=== PATIENT | female | born 1995 | race Two or more races ===

== ENCOUNTER → 2024-10-04 | Outpatient (CLI) | payer OTHER, SELFPAY ==
[2024-10-04 10:45] LABS: Basophils # (Auto) 0.1 Thou/mm3 (0.0-0.2); Basophils % (Auto) 1 % (0-2.5); Eosinophils # (Auto) 0.2 Thou/mm3 (0.0-0.5); Eosinophils % (Auto) 3 % (0-10); Hematocrit 38.1 % (36.0-46.0); Immature Granulocytes % (Auto) 0 % (0-0); Immature Granulocytes Auto 0.02 Thou/mm3 (0.00-0.00); Lymphocytes # (Auto) 1.3 Thou/mm3 (1.0-4.8); Lymphocytes % (Auto) 18 % (10-50); Mean Corpuscular HGB Conc 34.1 g/dl (31.0-37.0); Mean Corpuscular Hemoglobin 31.3 pg (25.0-35.0); Mean Corpuscular Volume 92 fL (80-100); Monocytes # (Auto) 0.6 Thou/mm3 (0.0-0.8); Monocytes % (Auto) 8 % (0-12); Neutrophils # (Auto) 5.1 Thou/mm3 (1.8-7.7); Neutrophils % (Auto) 70 % (37-80); Nucleated Red Blood Cell % 0 /100 WBC (0); Platelet Count 245 Thou/mm3 (140-440); RDW Standard Deviation 42.9 fL (36.4-46.3); Red Blood Count 4.15 Miln/mm3 (4.00-5.20); White Blood Count 7.2 Thou/mm3 (3.6-11.0)
[2024-10-04 11:06] LABS: Ferritin 59 ng/mL (7.3-270.7)
[2024-10-12 06:26] LABS: ANA Screen, IFA NEGATIVE (NEGATIVE); DNA (ds) Antibody* <1 IU/mL; Mitochondrial Ab NEGATIVE (NEGATIVE)
== END | disposition home or self-care (01) ==
LOC: COPL 09:51
PROVIDERS: PCP Internal Medicine; Referring Provider Internal Medicine; Visit Provider Internal Medicine
DX: L65.8 Other specified nonscarring hair loss (principal); K92.2 Gastrointestinal hemorrhage, unspecified; D50.8 Other iron deficiency anemias
CPT/HCPCS: 36415; 82728; 85025; 86038; 86225; 86255

== ENCOUNTER 2024-10-29 10:35 | Day surgery (SDC) | payer OTHER, SELFPAY ==
[2024-10-24 11:50] LABS: HCG Qualitative,Urine Negative
[2024-10-24 12:27] VITALS: BMI 25.7
[2024-10-29] VITALS (12 sets, daily range): BP systolic 103–131; BP diastolic 62–80; PULSE 83–127; RESP 12–22; TEMP 36.2–37.4; O2SAT 96–100; BMI 26.2
[2024-10-29] MEDS: fentaNYL CIT INJ 50 mCg/ML AMP 2ML (ASD USE ONLY) IV (12:21)
[2024-10-29] MEDS: DiphenhydrAMINE INJ 50 MG/ML VIAL 25 MG IV (12:21)
[2024-10-29] MEDS: LIDOCAINE JELLY 2% (Urojet) 10 ML TUBE TOP (12:23)
[2024-10-29] MEDS: MEPERIDINE INJ 25 MG/ML VIAL (ASD USE ONLY) IV (12:27)
[2024-10-29] MEDS: MIDAZOLAM INJ 1 MG/ML VIAL 2 ML (ASD USE ONLY) 2 MG IV (12:27)
[2024-10-29] MEDS: ONDANSETRON INJ 2 MG/ML INJ 2 ML 4 MG IV (12:29)
--- NOTE | 2024-10-29 13:05 | SUR.PHASEII ---
1245: Pt received for recovery. Pt groggy. Easily aroused with eye opening. Resp even, unlabored. VS stable. Denies pain. 1306: Pt more awake, alert. Sitting up tolerating po fluids with no difficulty swallowing and no n/v.
--- NOTE | 2024-10-29 13:47 | SUR.PHASEII ---
1328: Pt fully awake, oriented x3. Pt assisted to restroom. Ambulation steady. Pt and sister stated understanding of discharge instructions. Pt discharged from [facility] in stable condition.
== END 2024-10-29 13:28 | disposition home or self-care (01) ==
PROVIDERS: PCP Internal Medicine; Referring Provider Specialist; Visit Provider Specialist
PROC: 0DBE8ZX Excision of Large Intestine, Via Natural or Artificial Opening Endoscopic, Diagnostic (ICD-10-PCS; CPT 45380; principal; 2024-10-29 12:15)
DX: K64.8 Other hemorrhoids (principal)
CPT/HCPCS: 45378; 81025; A4649; J1200; J2175; J2250; J2405; J3010

== ENCOUNTER 2024-12-03 07:06 | Emergency (ER) | payer OTHER, SELFPAY ==
[2024-12-03 07:15] VITALS: BP 108/76; PULSE 72; RESP 18; TEMP 36.9; O2SAT 100; BMI 25.8
--- NOTE | 2024-12-03 07:27 | EDNOTE_ITS ---
ED GI Bleed RME/HPI General Chief complaint: GI Bleed Stated complaint: RECTAL PAIN/BLEEDING, LOWER BACK PAIN Time Seen by Provider: 12/03/24 07:29 Source: patient Arrival date/time: 12/03/24 07:06 29-year-old female with a history of hematochezia presents to the emergency room with a chief complaint of rectal pain, bright red blood in the stool, and right- sided flank pain x 2 days. Patient states she spoke with her GI Dr. Collier last night and he told her if her pain is not getting better to return to the emergency room. Mode of arrival: ambulatory Limitations: no limitations Related Data Home Medications ?Medication ?Instructions ?Recorded ?Confirmed ergocalciferol (vitamin D2) 1,250 50,000 unit PO QWEEK 10/24/24 10/24/24 mcg (50,000 unit) capsule ferrous sulfate 325 mg (65 mg 1 mg PO QDAY 10/24/24 10/24/24 iron) tablet Previous Rx's ?Medication ?Instructions ?Recorded docusate sodium 100 mg capsule 100 mg PO QDAY #30 caps 12/03/24 (Colace) hydrocortisone acetate 25 mg 25 mg TN BID #12 ea 12/03/24 rectal suppository (Anusol-HC) Allergies Allergy/AdvReac Type Severity Reaction Status Date / Time No Known Allergies Allergy Verified 10/29/24 12:55 Review of Systems Review of Systems Systems Reviewed: All systems reviewed, normal except as documented Constitutional Constitutional: Reports system reviewed and no additional complaints, except as documented, Denies fatigue, Denies fever(s), Denies headache(s) and Denies weakness Eyes Eyes: Reports system reviewed and no additional complaints, except as documented, Denies blurry vision and Denies change in vision ENT Ears, Nose, Mouth, and Throat: Reports system reviewed and no additional complaints, except as documented, Denies otalgia, Denies headache(s), Denies nasal congestion, Denies throat swelling and Denies vertigo Cardiovascular Cardiovascular: Reports system reviewed and no additional complaints, except as documented, Denies chest pain, Denies dyspnea and Denies dyspnea on exertion Respiratory Respiratory: Reports system reviewed and no additional complaints, except as documented, Denies chest congestion, Denies cough, Denies dyspnea, Denies dyspnea on exertion and Denies wheezing Gastrointestinal Gastrointestinal: Reports system reviewed and no additional complaints, except as documented, Reports abdominal pain, Reports constipation, Reports cramping, Reports hematochezia, Reports nausea, Reports tenesmus and Denies vomiting Genitourinary Genitourinary: Reports system reviewed and no additional complaints, except as documented Musculoskeletal Musculoskeletal: Reports system reviewed and no additional complaints, except as documented and Denies back pain Integumentary/Breasts Skin/Breast: Reports system reviewed and no additional complaints, except as documented and Denies wounds Neurologic Neurologic: Reports system reviewed and no additional complaints, except as documented, Denies confusion, Denies headache(s), Denies lack of coordination, Denies vertigo and Denies weakness Psychiatric Psychiatric: Reports system reviewed and no additional complaints, except as documented, Denies anxiety, Denies confusion, Denies depression, Denies paranoia, Denies suicidal ideation and Denies tactile hallucinations Endocrine Endocrine: Reports system reviewed and no additional complaints, except as documented and Denies fatigue Hematologic/Lymphatic Hematologic/Lymphatic: Reports system reviewed and no additional complaints, except as documented and Denies lymphadenopathy Allergic/Immunologic Allergic/Immunologic: Reports system reviewed and no additional complaints, except as documented, Denies throat swelling, Denies urticaria and Denies wheezing ED Exam General Limitations: Present no limitations General appearance: Present alert and in no apparent distress Head Head exam: Present atraumatic Eye Eye exam: Present normal appearance, PERRL and EOMI ENT ENT exam: Present normal exam, normal oropharynx and mucous membranes moist Neck Neck exam: Present normal inspection, full ROM and trachea midline Chest Chest inspection: Present normal inspection and symmetric chest wall rise Respiratory Respiratory exam: Present normal lung sounds bilaterally Cardiovascular Cardiovascular exam: Present regular rate, normal rhythm and normal heart sounds Abdominal Exam Abdominal exam: Present soft, tenderness, normal bowel sounds and diminished bowel sounds; Absent distention, guarding, rebound or rigidity Abdominal tenderness: Present RLQ, LLQ and mild Rectal Exam Rectal exam: Present deferred, bloody stool, hemorrhoids and tenderness Extremities Exam Extremities exam: Present normal inspection and full ROM Back Exam Back exam: Present normal inspection and full ROM Neurological Exam Neurological exam: Present alert, oriented X3 and CN II-XII intact Psychiatric Psychiatric exam: Present normal affect and normal mood Skin Skin exam: Present warm, dry, intact and normal color Course Quality Measures none Orders Category Date Time Status CT Screening NOW Care 12/03/24 07:26 Completed Enema Administration NOW Care 12/03/24 09:23 Completed CBC Stat Lab 12/03/24 07:49 Completed CMP [Comprehensive Metabolic Panel] Stat Lab 12/03/24 07:49 Completed HCG Qualitative,Urine Stat Lab 12/03/24 07:32 Completed Lipase Stat Lab 12/03/24 07:49 Completed UA [Urinalysis] Stat Lab 12/03/24 07:32 Completed Urine Culture Stat Lab 12/03/24 07:34 Received Hydrocortisone Acet Cr 2.5% [Anusol-Hc Cr 2.5%] Med 12/03/24 10:44 Discontinued 1 gm TN X1 ONE Hydrocortisone Acet [Anusol Supp] Med 12/03/24 10:44 Discontinued 50 mg TN X1 ONE Vital Signs Vital signs: Vital Signs Temperature 98.5 F 12/03/24 07:15 Pulse Rate 72 12/03/24 07:15 Respiratory Rate 18 12/03/24 07:15 Blood Pressure 108/76 12/03/24 07:15 Pulse Oximetry (%) 100 12/03/24 07:15 Oxygen Delivery Method Room Air 12/03/24 07:15 GI Bleed MDM Narrative MDM Narrative:: 29-year-old female with a history of hematochezia presents to the emergency room with a chief complaint of rectal pain, bright red blood in the stool, and right- sided flank pain x 2 days. Patient states she spoke with her GI Dr. Collier last night and he told her if her pain is not getting better to return to the emergency room. Clinically the patient appears nontoxic and in no apparent distress. Physical examination shows mild lower abdominal tenderness with palpation. Patient states she is having bright red blood and is having tenderness and pain to her rectum. Patient states this has been an ongoing issue since she was 14 years [address] I called Dr. Collier and his recommendations were a CT scan of the abdomen and pelvis with contrast. During the workup the patient turned out to be . I called Dr. Collier and he ordered me to cancel the CT scan. An enema was done and the patient was reevaluated in 45 minutes and the patient had a bowel movement. However she is still having pain and tenderness in her rectum. Dr. Collier was called and his recommendations were to discharge the patient with some stool softeners and give her some pain relief here in the emergency room. Patient was discharged and educated to follow-up with primary care provider and Dr. Collier and return to the emergency room for any evidence of worsening signs or symptoms Patient data External records reviewed:: [facility] previous records Clinical information provided by:: patient Social determinants that could affect healthcare access:: none Patient has the following chronic illnesses:: No chronic illness How is presenting disease/condition affected by chronic disease/condition?: no chronic disease Evaluation data The following diagnostics were reviewed and interpreted by me:: lab results and radiology exam(s) Lab and/or radiology exams considered but not ordered:: Labs and radiology exams considered and ordered Interpretation Summary: N/A Medications / Prescriptions Medications or Prescriptions considered but not ordered:: Medication given Medication administrations:: Medication Administration History Discontinued Medications Hydrocortisone (Hydrocortisone Acet Cr 2.5% 30 Gm Tube) 1 gm TN X1 ONE Stop: 12/03/24 10:45 Last Admin: 12/03/24 12:21 Dose: 1 gm Documented By: AM Hydrocortisone Acetate (Hydrocortisone Acet 25 Mg Supp) 50 mg TN X1 ONE Stop: 12/03/24 10:45 Last Admin: 12/03/24 12:21 Dose: 50 mg Documented By: AM Medication given Consultations Consultation(s) initiated? (list below): Yes Consultation #1 (Physician, Specialty, Details): Dr. Collier Time: 08:00 Diagnosis GI bleed differential diagnosis: hemorrhoids, gastritis, hematochezia, melena and anal fissure Most likely diagnosis given after review of the tests above:: Hematochezia Admission Indicated Admission indicated?: not indicated Admission Request Was there a request for admission?: No Disposition Plan Disposition Plan: Discharge Discharge Attestation Discharge Attestation: The patient and all family members were given an opportunity to ask questions and understood the discharge instructions. Discharge instructions specifically effects, indications for sooner follow up or return to the emergency department, and the expected course of current diagnosis. Patient condition: Stable Discharge Plan Plan Patient Disposition: HOME (Self Care) Disposition Comment: Stable Prescriptions/Referrals Prescriptions/Med Rec: New docusate sodium [Colace] 100 mg capsule 100 mg PO QDAY Qty: 30 0RF hydrocortisone acetate [Anusol-HC] 25 mg suppository 25 mg TN BID Qty: 12 0RF No Action ferrous sulfate 325 mg (65 mg iron) tablet 1 mg PO QDAY ergocalciferol (vitamin D2) 1,250 mcg (50,000 unit) capsule 50,000 unit PO QWEEK Patient Comments: TAKE 1 CAPSULE BY MOUTH WEEKLY Referrals: Lauri Collier MD [Physician] - In 1 week Yenifer Roberts MD [Primary Care Provider] - In 1 week Problem List Clinical Impression: Hematochezia Patient/Caregiver Discharge Instructions Education Materials: Anatomy of the Digestive System Additional Instructions: Please follow-up with your primary care provider in the next 24 to 48 hours. I spoke to the GI specialist Dr. Collier who would like to see you in his office. Please call his office and schedule an appointment. Please increase your fiber intake. At this time you had a positive test. For any evidence of worsening signs or symptoms please return to the emergency room immediately Print Language: Vietnamese Stand Alone Forms: Jen Award Info., Work/School Release, Patient Portal Info Letter PA/ELECTRICAL INSTRUMENT MAKER Supervising Physician PA/KATHERIN Supervising Physician: Dr Malcolm
[2024-12-03 08:11] LABS: Collection Type, Urine Clean Catch; RBC,Urine 0 /hpf (0-3); WBC,Urine 0 /hpf (0-5)
[2024-12-03 08:17] LABS: Basophils # (Auto) 0.1 Thou/mm3 (0.0-0.2); Basophils % (Auto) 1 % (0-2.5); Eosinophils # (Auto) 0.2 Thou/mm3 (0.0-0.5); Eosinophils % (Auto) 2 % (0-10); Hematocrit 36.3 % (36.0-46.0); Hemoglobin 12.5 g/dL (12.0-16.0); Immature Granulocytes % (Auto) 0 % (0-0); Immature Granulocytes Auto 0.01 Thou/mm3 (0.00-0.00); Lymphocytes # (Auto) 2.1 Thou/mm3 (1.0-4.8); Lymphocytes % (Auto) 29 % (10-50); Mean Corpuscular HGB Conc 34.4 g/dl (31.0-37.0); Mean Corpuscular Hemoglobin 31.2 pg (25.0-35.0); Mean Corpuscular Volume 91 fL (80-100); Monocytes # (Auto) 0.6 Thou/mm3 (0.0-0.8); Monocytes % (Auto) 8 % (0-12); Neutrophils # (Auto) 4.2 Thou/mm3 (1.8-7.7); Neutrophils % (Auto) 60 % (37-80); Nucleated Red Blood Cell % 0 /100 WBC (0); Platelet Count 226 Thou/mm3 (140-440); RDW Standard Deviation 41.9 fL (36.4-46.3); Red Blood Count 4.01 Miln/mm3 (4.00-5.20); White Blood Count 7.1 Thou/mm3 (3.6-11.0)
[2024-12-03 08:34] LABS: HCG Qualitative,Urine Positive
[2024-12-03 08:37] LABS: Alanine Aminotransferase < 7 U/L (10-49); Albumin, Serum 4.1 gm/dL (3.5-5.0); Albumin/Globulin Ratio 1.5 (1.2-2.2); Alkaline Phosphatase 36 U/L (46-116); Anion Gap 6 (7-16); Aspartate Amino Transferase 15 U/L (0-34); BUN/Creatinine Ratio 14 Ratio (12-20); Bilirubin,Total 0.6 mg/dL (0.3-1.2); Blood Urea Nitrogen 10 mg/dL (9-23); Calcium 8.9 mg/dL (8.3-10.6); Calcium (Corrected) 8.9 mg/dL (8.5-10.1); Carbon Dioxide 23.9 mMol/L (20.0-31.0); Chloride 108 mMol/L (98-107); Creatinine (Component) 0.7 mg/dL (0.6-1.3); Estimated Creatinine Clearance 116.7 mL/min (>60); Globulin 2.8 gm/dL (2.3-3.5); Glucose 91 mg/dL (74-106); Lipase 38 U/L (12-53); Osmolality,Calculated 274 (275-295); Potassium 3.9 mMol/L (3.4-5.1); Sodium 138 mMol/L (136-145); Total Protein 6.9 gm/dL (5.7-8.2); eGFR > 60 See Note
[2024-12-03 08:54] LABS: Bacteria,Urine Rare; Bilirubin,Urine Negative (Negative); Blood,Urine Trace (Negative); Clarity,Urine Clear (Clear/Hazy); Color,Urine Lt-Yellow (Lt Yel-Yel); Glucose, Urine Negative (Negative); Ketones,Urine Negative (Negative); Leukocyte Esterase,Urine Negative (Negative); Nitrite,Urine Negative (Negative); PH,Urine 5.5 (5.0-7.0); Protein,Urine Negative (Neg - Trace); Specific Gravity,Urine 1.015 (1.001-1.035); Squamous Epithelial Cell,Urine 4 /hpf (0-5); Urobilinogen,Urine Negative mg/dL (0.0-1.0)
[2024-12-03 09:59] VITALS: BP 119/68; PULSE 67; RESP 16; TEMP 36.6; O2SAT 100
--- NOTE | 2024-12-03 10:44 | PC.NURSE ---
Pt states she was able to have large bm after enema, but still c/o rectal pain and pressure.
[2024-12-03] MEDS: HYDROCORTISONE ACET CR 2.5% 30 GM TUBE PR (12:21)
[2024-12-03] MEDS: HYDROCORTISONE ACET 25 MG SUPP 50 MG PR (12:21)
== END 2024-12-03 12:29 | disposition home or self-care (01) ==
PROVIDERS: Nurse Practitioner Family; Emergency Provider Emergency Medicine; PCP Internal Medicine
DX: K92.1 Melena (principal)
CPT/HCPCS: 36415; 80053; 81001; 81025; 83690; 85025; 87086; 99285; A9270

== ENCOUNTER 2025-05-20 13:25 | Observation (INO) | payer OTHER, SELFPAY ==
[2025-05-20] VITALS (12 sets, daily range): BP systolic 119; BP diastolic 73; PULSE 60–77; RESP 20–99; TEMP 37.2; O2SAT 88–100; BMI 31.2
--- NOTE | 2025-05-20 14:09 | XR_ITS ---
Examination: age Limited TECHNIQUE: Limited transabdominal sonographic images pelvis Date and time: May 20, 2025, 1422 hours INDICATIONS: Decreased movement beginning 2 days ago FINDINGS: Viable intrauterine gestation Cardiac motion 144 BPM Amniotic fluid index 14 cm IMPRESSION: Cardiac motion 144 BPM Amniotic fluid index 14 cm
--- NOTE | 2025-05-21 10:56 | PD.LDPN ---
Documentation for date of: 05/21/25 OB Labor Progress Note Pelvic Exam Amniotic membrane status: Intact Contractions Monitor mode: External Contraction frequency: NONE Assessment and Plan Comments: Late note for encounter on 05/20/25 Antonia is a 29yo G1 with SIUP at 28wk presenting to L&D for decreased movements. She notes no ctx, no lof, no vaginal bleeding. Current : This has been uncomplicated, she has had regular OB care with Dr. Andrade's office. Referred to [facility] for hx of hydrocephalus. ROS negative other than what was described above. Vitals wnl, afebrile General: well developed, well nourished, no acute distress, conversant Cardiac: normal heart rate Lungs: breathing without distress Abdomen: soft, gravid, non-tender, no rebound or guarding Extremities: no pain with palpation of calves NST: reassuring for gestational age with 10x10 accels, no decels, mod collette No ctx pattern Radiology: Examination: age Limited TECHNIQUE: Limited transabdominal sonographic images pelvis Date and time: May 20, 2025, 1422 hours INDICATIONS: Decreased movement beginning 2 days ago FINDINGS: Viable intrauterine gestation Cardiac motion 144 BPM Amniotic fluid index 14 cm IMPRESSION: Cardiac motion 144 BPM Amniotic fluid index 14 cm Assessment: Antonia is a 29yo G1 with SIUP at 28wk with decreased movement. Vitals wnl, benign exam. Reassuring status based on NST/WING (modified BPP). Plan: -Provided reassurance regarding findings -Continue routine follow up with Dr. Andrade's office -Discussed return precautions at length including FKCs Dr. Solis
== END 2025-05-20 14:55 | disposition home or self-care (01) ==
PROVIDERS: Admitting Provider Obstetrics & Gynecology; Visit Provider Obstetrics & Gynecology
DX: O36.8130 Decreased fetal movements, third trimester, not applicable or unspecified (principal); O26.893 Other specified pregnancy related conditions, third trimester; R10.12 Left upper quadrant pain; Z3A.28 28 weeks gestation of pregnancy
CPT/HCPCS: 59025; 59899; 76815

== ENCOUNTER → 2025-06-17 | Outpatient (CLI) | payer OTHER, SELFPAY ==
--- NOTE | 2025-06-17 16:53 | XR_ITS ---
Examination: MRI brain without intravenous contrast. Date and time of exam: June 17, 2025, 1811 hours INDICATIONS: History hydrocephalus with shunt placement made 1995, daily headaches months Technique: Multiple axial and sagittal images of the brain obtained. Siemens high-resolution 1.5 Ruby short bore scanners utilized. Sagittal sections, T1-weighted, TR 500, TE 14, are performed. Axial sections proton-density and T2-weighted have been obtained. Inversion recovery axial images, TR 9, 260, TE 111, TI 2500. Diffusion weighted images, axial sections, TR 4800, TE 128, B value 1000 Axial sections, ADC map, TR 4800, TE 128 Findings: Enlargement of the sella turcica is not present. The optic chiasm and infundibular are not remarkable. Prepontine and interpeduncular cisterns are not enlarged. There is no localized enlargement of the medulla or tiffany. Fourth ventricle and cerebellar tonsils appear normal in position. No subacute area of hemorrhage density is seen. Mass in the cerebellopontine angle region is not evident. Globes symmetrical. Orbital musculature including medial lateral rectus muscles do not exhibit abnormality. Diffusion-weighted images demonstrate no focus of restricted diffusion. Single 5 mm punctate focus of increased signal in the right parietal white matter FLAIR image 15 Shunt tubing posterior to the parieto-occipital bone Mass effect upon the ventricular system is not identified. Right occipital craniotomy defect Impression: Negative for acute hemorrhage or mass effect or midline shift No ventricular enlargement No acute infarct 5 mm punctate focus increased signal in the parietal white matter, seen with demyelinating disease
== END | disposition home or self-care (01) ==
LOC: SMRI 16:42
PROVIDERS: PCP Internal Medicine; Referring Provider Specialist; Visit Provider Specialist
DX: G37.9 Demyelinating disease of central nervous system, unspecified (principal)
CPT/HCPCS: 70551

== ENCOUNTER 2025-08-06 16:35 | Outpatient (CLI) | payer OTHER, SELFPAY ==
[2025-08-06 16:35] VITALS: BP 117/69; PULSE 73; RESP 16; RESP 99; TEMP 36.9; BMI 36.2
== END 2025-08-06 18:00 | disposition home or self-care (01) ==
LOC: S4SX 17:50 → S4S1 18:05 → S4SX 18:06
PROVIDERS: Referring Provider Specialist; Visit Provider Specialist
DX: O36.8130 Decreased fetal movements, third trimester, not applicable or unspecified (principal); Z3A.39 39 weeks gestation of pregnancy
CPT/HCPCS: 59025

== ENCOUNTER 2025-08-10 03:43 | Observation (INO) | payer OTHER, SELFPAY ==
[2025-08-10 03:50] VITALS: BP 146/84; PULSE 82; RESP 18; RESP 99; TEMP 37
[2025-08-10 04:03] VITALS: BMI 36.1
[2025-08-10 04:09] VITALS: BP 135/82; PULSE 75
[2025-08-10 04:45] VITALS: BP 112/69; PULSE 73
[2025-08-10 07:16] VITALS: BP 106/65; PULSE 70
[2025-08-10 07:47] VITALS: BP 109/61; PULSE 65
[2025-08-10 08:15] VITALS: BP 114/68; PULSE 73
== END 2025-08-10 12:24 | disposition home or self-care (01) ==
PROVIDERS: Admitting Provider Specialist; Visit Provider Specialist
DX: O26.893 Other specified pregnancy related conditions, third trimester (principal); Z3A.39 39 weeks gestation of pregnancy; R25.2 Cramp and spasm
CPT/HCPCS: 59025; 59899

== ENCOUNTER 2025-08-10 20:58 | Inpatient (IN) | payer OTHER, SELFPAY ==
--- NOTE | 2025-08-10 09:30 | ESHP_ITS ---
RE: CIRA MARROQUIN : 1995 DATE OF ADMISSION: 08/10/2025 HISTORY OF PRESENT ILLNESS: This is a 29-year-old 1, para 0 with intrauterine at 39 weeks and 5 days with due date of 08/12/2025, who presents to labor delivery complaining of contractions. She denies any leaking or bleeding. She reports normal movement. The patient was evaluated during her care by maternal medicine and neurosurgeon, Dr. Darien Zurita due to the patient's history of having an indwelling ventriculoperitoneal shunt, which was placed after an enterocele repair years ago at [facility] due to postsurgical hydrocephalus. Her INTERVENTIONAL CARDIOLOGIST shunt is nonfunctioning and the patient does not have any hydrocephalus with an MRI during her normal. Her neurologist and maternal medicine specialist have indicated that the patient is a candidate for vaginal delivery. Her care was also complicated by macrosomia with estimated weight on her ultrasound on 08/01/2025 of 8 pounds 12 ounces. The patient denies any headache, change in vision or right upper quadrant pain. MEDICATIONS: 1. multivitamin one p.o. daily. 2. Omeprazole 20 mg one p.o. daily. ALLERGIES: NO KNOWN DRUG ALLERGIES. PAST MEDICAL HISTORY: Encephalocele, postsurgical hydrocephalus, gastroesophageal reflux disease, polycystic ovarian syndrome, anxiety, risk of silent carrier of spinal muscular atrophy type 1, one in 40; however, her partner, Luís Nixon, father of the baby, was negative for being a carrier. PAST SURGICAL HISTORY: Encephalocele repair, placement of ventriculoperitoneal shunt for postsurgical hydrocephalus. FAMILY HISTORY: Hypertension and breast cancer. SOCIAL HISTORY: She denies alcohol, drug use or smoking. REVIEW OF SYSTEMS: She denies any chest pain, palpitations, cough, fever, flank pain, shortness of breath, fever, or lower extremity pain. PHYSICAL EXAMINATION: VITAL SIGNS: Blood pressure 127/80, heart rate 88, respirations 18, temperature 98.6. HEENT: Oropharynx and sclerae are clear. LUNGS: Clear to auscultation bilaterally. HEART: Regular rate and rhythm. ABDOMEN: Gravid, term size consistent with estimated weight of 9 pounds. PELVIC: See RN notes. EXTREMITIES: Nontender. SKIN: No gross rashes or lesions. NEUROLOGIC: No focal deficit. ASSESSMENT AND PLAN: Intrauterine at 39 weeks and 5 days, macrosomia, early labor, anticipate spontaneous vaginal delivery. Informed consent was obtained. The patient is made aware of the risks, complications, alternatives, and benefits of operative vaginal delivery and delivery. She agrees with these modes of delivery if indicated. The patient is aware that if delivery is indicated that she has a risk of infection of the ventriculoperitoneal shunt, which could lead to an infection in her brain. She is aware that there is an increased risk of infection if she undergoes a failed vaginal delivery. The patient was offered delivery due to the macrosomia to avoid risk of shoulder dystocia and minimize chances of INTERVENTIONAL CARDIOLOGIST shunt infection however, the patient declines and she elects to undergo a trial of vaginal delivery. DT: 07:48:15 TT: 08:54:00 Ref: [id number] - TID: [id number] MTDD
[2025-08-10 21:00] VITALS: TEMP 36.8
[2025-08-10 21:05] VITALS: BP 137/87; PULSE 75; RESP 18; RESP 98; TEMP 36.8; BMI 35.9
[2025-08-10 21:17] VITALS: BP 137/87; PULSE 75
[2025-08-11] VITALS (300 sets, daily range): BP systolic 91–149; BP diastolic 51–96; PULSE 52–150; RESP 12–22; TEMP 36.1–37; O2SAT 92–100; BMI 35.9
[2025-08-11 00:42] LABS: Basophils # (Auto) 0.1 Thou/mm3 (0.0-0.2); Basophils % (Auto) 0 % (0-2.5); Eosinophils # (Auto) 0.0 Thou/mm3 (0.0-0.5); Eosinophils % (Auto) 0 % (0-10); Hematocrit 36.6 % (36.0-46.0); Hemoglobin 12.7 g/dL (12.0-16.0); Immature Granulocytes Auto 0.05 Thou/mm3 (0.00-0.00); Lymphocytes # (Auto) 1.7 Thou/mm3 (1.0-4.8); Lymphocytes % (Auto) 12 % (10-50); Mean Corpuscular HGB Conc 34.7 g/dl (31.0-37.0); Mean Corpuscular Hemoglobin 31.7 pg (25.0-35.0); Mean Corpuscular Volume 91 fL (80-100); Monocytes # (Auto) 1.1 Thou/mm3 (0.0-0.8); Monocytes % (Auto) 8 % (0-12); Neutrophils # (Auto) 11.4 Thou/mm3 (1.8-7.7); Neutrophils % (Auto) 80 % (37-80); Nucleated Red Blood Cell # 0.00 Thou/mm3 (0.00-0.00); Nucleated Red Blood Cell % 0 /100 WBC (0); Platelet Count 186 Thou/mm3 (140-440); RDW Standard Deviation 42.4 fL (36.4-46.3); Red Blood Count 4.01 Miln/mm3 (4.00-5.20); White Blood Count 14.4 Thou/mm3 (3.6-11.0)
[2025-08-11 01:18] LABS: Syphilis Nonreactive (Nonreactive)
[2025-08-11] MEDS: RINGERS LACTATED 1000 ML 1,000 ML 100 ML IV (01:20)
[2025-08-11] MEDS: fentaNYL CIT INJ 50 mCg/ML AMP 2ML 100 MCG IVP (01:44)
[2025-08-11] MEDS: OXYTOCIN in NS 30 units 30 UNIT/500 ML BAG IV (04:54)
--- NOTE | 2025-08-11 07:06 | PD.LDPN ---
Documentation for date of: 08/11/25 OB Labor Progress Note Pain Control Comments: Epidural Pelvic Exam Dilation (cm): 7.5 Effacement (%): 90 station: 0 Amniotic membrane status: Ruptured Comments: Clear fluid Contractions Monitor mode: External Contraction frequency: 2-4.5 Contraction intensity: Moderate Status status: Category l Assessment and Plan Comments: Anticipate vaginal delivery
--- NOTE | 2025-08-11 16:15 | PD.LDPN ---
Documentation for date of: 08/11/25 OB Labor Progress Note Pelvic Exam Dilation (cm): 10 Effacement (%): 100 station: +3 Amniotic membrane status: Ruptured Contractions Monitor mode: External Contraction frequency: 1-3 Contraction intensity: Strong Status status: Category ll Assessment and Plan Comments: Patient requested vacuum-assisted vaginal delivery due to exhaustion and poor maternal expulsive effort after pushing for 2 hours The first 2 Mity VAC vacuum attempts resulted in pop-off's, and the third did not pop-off but there was no significant descent of the head on any attempt. Recommend emergency delivery Informed consent was obtained the patient was made aware the risk complication alternative benefits of the proposed procedure and she agrees.
[2025-08-11] MEDS: METOCLOPRAMIDE INJ 5 MG/ML VIAL 2 ML 10 MG IVP (16:19)
[2025-08-11] MEDS: ceFAZolin/D5W 2 GM IV 2 GM/100 ML BAG IV (16:19)
[2025-08-11] MEDS: FAMOTIDINE INJ 10 MG/ML VIAL 2 ML 20 MG IV (16:19)
--- NOTE | 2025-08-11 17:16 | PD.LDDS ---
DS: Providers Provider Date of admission: 08/11/25 00:14 Primary care physician: Physician No Primary/Family Admitting Provider: Kyrie Andrade MD Attending Provider on Admission: Kyrie Andrade MD Attending Provider on DC: Kyrie Andrade MD Discharging Provider: Kyrie Andrade MD DS: Diagnosis Discharge Diagnosis (1) Arrest of descent, delivered, current hospitalization: Status: Acute (2) Failed vacuum extraction, delivered, current hospitalization: Status: Acute (3) delivery delivered: Status: Acute (4) Endometriosis: Status: Acute (5) Endometritis: Status: Acute (6) hemorrhage, condition: Status: Acute (7) Uterine atony, , current hospitalization: Status: Acute (8) S/P abdominal hysterectomy and left salpingo-oophorectomy: Status: Acute Problem List Completed Was Problem List Reviewed/Reconciled?: Yes Summary/Hosp Course Peripartum Data Delivery Method: Low Transverse Time Spent with Patient Time attestation: Total time spent providing and/or coordinating discharge services: Exam Vital Signs Temp Pulse Resp BP Pulse Ox 98.2 F 69 16 131/71 H 98 08/11/25 07:00 08/11/25 16:11 08/11/25 07:00 08/11/25 16:11 08/11/25 16:18 Discharge Plan Plan Patient Disposition: HOME (Self Care) Patient condition on transfer: Stable Prescriptions/Referrals Prescriptions/Med Rec: New hydrocodone-acetaminophen 5-325 mg tablet 1 tab PO Q6H MDD 4 PRN (Reason: pain) Qty: 20 0RF ibuprofen 600 mg tablet 600 mg PO Q6H PRN (Reason: pain) Qty: 30 0RF sulfamethoxazole-trimethoprim [Bactrim DS] 800-160 mg tablet 1 tab PO BID Qty: 10 0RF amoxicillin-pot clavulanate 875-125 mg tablet 1 tab PO Q12H Qty: 10 0RF docusate sodium 100 mg capsule 100 mg PO BID PRN (Reason: constipation) Qty: 30 0RF hydrochlorothiazide 12.5 mg tablet 12.5 mg PO QDAY PRN (Reason: leg swelling) Qty: 7 0RF Continued PNV no.95-ferrous fumarate-FA [] 28 mg iron- 800 mcg tablet 1 tab PO .QD Patient Comments: TAKE 1 TABLET BY MOUTH EVERY DAY Referrals: No Primary/Family,Physician [Primary Care Provider] Patient/Caregiver Discharge Instructions Discharge Activity: activity as tolerated Other Discharge Activity Instructions:: Follow up office 1 week. Education Materials: Depression, Breast Care After , Abdominal Hysterectomy Dc Print Language: Persian Stand Alone Forms: Jen Award Info., Patient Portal Info Letter Discharge Order Discharge Orders: Discharge (Routine); Ordered 08/15/25 Ordered By: Kyrie Andrade Planned Discharge Date 08/15/25
--- NOTE | 2025-08-11 17:16 | PD.GYNPROC ---
Operative Note - MATERIALS CLERK Procedure Date of procedure: 08/11/25 Procedure Performed: Primary low-transverse section via Pfanensteil skin incision Indication: IUP 39 weeks 6 days Active labor Arrest of descent Failed vacuum-assisted vaginal delivery Pre-Op diagnosis: IUP 39 weeks 6 days Active labor Arrest of descent Failed vacuum-assisted vaginal delivery Post-Op diagnosis: IUP 39 weeks 6 days Active labor Arrest of descent Failed vacuum-assisted vaginal delivery Endometritis Endometriosis Anesthesia type: General (Failed epidural) Procedure description: After proper informed consent was obtained and the patient was made aware of the risks, complications, alternatives and benefits of the proposed procedure she was taken to the operating room where she underwent induction She was prepped and draped in the usual sterile fashion. A timeout was performed.? Tesing of Epidural proved inadequate so the patient underwent induction of General Anesthesia. A Pfannenstiel skin incision was made with the scalpel and carried through to the underlying layer of fascia with the Bovie. The fascia was nicked in the midline incision and the incision was extended bilaterally with the Bovie. The inferior aspect of the fascial incision was grasped with Michael clamps elevated and the underlying rectus muscle dissected off with the Bovie. The superior aspect the fascial incision was grasped with Michael clamps elevated and the underlying rectus muscle dissected off with the Bovie. The rectus muscles were in the midline. The peritoneum was grasped between 2 Mansfield clamps and entered sharply with the Metzenbaum scissors. The peritoneum was extended superiorly and inferiorly with good visualization of the bladder. The vesicouterine peritoneum was incised transversely and the bladder flap created digitally. A Smitha blade was inserted. A low transverse incision was made in the uterus with a scapel and the incision was extended digitally. With the RN pushing up with sterile glove from below and the physician elevating the head out of the vagina from above, the 's head delivered and the mouth and nose were suctioned with the bulb suction. The shoulder and body delivered atraumatically. The cord was clamped after 30 second delayed cord clamping and the cord was cut.? The infant was handed off to the waiting Pediatric staff, cord blood and gases was collected for lab testing. The placenta was removed complete and intact. The uterus was exteriorized and cleared of all clots and debris. The uterus was initially atonic but responded to uterotonics in the form of Pitocin, Methergine and Cytotec. TXA was also given. The uterine incision was closed with #1-0 chromic catgut suture in a running interlocking fashion. A second layer of the same suture was used to imbricate the first layer and obtain excellent hemostasis. The vesicouterine peritoneum was closed with 2-0 chromic catgut suture in a running fashion. The firm uterus was returned to the abdomen. The gutters were cleared of all clots and debris. The peritoneum was closed with 0 chromic catgut suture in running fashion. The rectus muscle was closed with 0 chromic catgut suture. The fascia was closed with 0 Vicryl beginning at each angle and ending in the center in a running fashion. The subcutaneous tissue was irrigated with warmed normal saline solution and found to be hemostatic. The subcutaneous tissue was closed with 2-0 chromic catgut suture in a running fashion. The skin was closed with 4-0 Monocryl. A Dermabond Prineo dressing was applied and a sterile pressure dressing was applied.? She tolerated the procedure well. Counts were correct. I discussed with the patient and her the nature of her condition, intraoperative findings and expectation for recovery all? questions answered. Specimen: none Estimated blood loss (ml): 1,000 Findings: Viable infant Clear amniotic fluid Apgars 3 and 8 Cord pH 7.25 Cephalic Occiput anterior Uterus and ovaries contained superficial endometriotic implants Fallopian tubes appear grossly within normal limits No ventriculoperitoneal shunt was visualized Complications: other (Uterine atony) Surgical staff PRADIP Camacho, MEDICAL LAB TECH INSTRUCTOR Dr Andrade Surgeon Diagnosis Problem List Completed Was Problem List Reviewed/Reconciled?: Yes
[2025-08-11] MEDS: HYDROmorphone 1 MG/ML PCA SYRINGE 30ML 30 MG IV (17:56)
[2025-08-11] MEDS: MEPERIDINE INJ 50 MG/ML VIAL IVP (18:00)
[2025-08-11] MEDS: KETOROLAC INJ 30 MG/ML VIAL IVP (18:03)
[2025-08-11] MEDS: AMPICILLIN/SULBAC INJ 3 GM in SODIUM CHLORIDE 0.9% (POP) 100 ML IV (18:04)
--- NOTE | 2025-08-11 19:22 | XR_ITS ---
Examination: Abdomen AP single view Technique: AP portable supine abdomen, single view Exam date and time: August 11, 2025, 192 hrs. Indications: Incorrect instrument count Findings: Moderate stool throughout the colon. No opaque foreign body seen Impression: No opaque foreign body seen
[2025-08-11 20:37] LABS: Lactate (Lactic Acid) 1.8 mMol/L (0.4-2.0)
[2025-08-11 20:42] LABS: Basophils # (Auto) 0.0 Thou/mm3 (0.0-0.2); Basophils % (Auto) 0 % (0-2.5); Eosinophils # (Auto) 0.0 Thou/mm3 (0.0-0.5); Eosinophils % (Auto) 0 % (0-10); Hematocrit 21.7 % (36.0-46.0); Immature Granulocytes Auto 0.12 Thou/mm3 (0.00-0.00); Lymphocytes # (Auto) 0.9 Thou/mm3 (1.0-4.8); Lymphocytes % (Auto) 6 % (10-50); Mean Corpuscular HGB Conc 34.1 g/dl (31.0-37.0); Mean Corpuscular Hemoglobin 31.1 pg (25.0-35.0); Mean Corpuscular Volume 91 fL (80-100); Monocytes # (Auto) 1.3 Thou/mm3 (0.0-0.8); Monocytes % (Auto) 9 % (0-12); Neutrophils # (Auto) 12.8 Thou/mm3 (1.8-7.7); Neutrophils % (Auto) 85 % (37-80); Nucleated Red Blood Cell # 0.00 Thou/mm3 (0.00-0.00); Nucleated Red Blood Cell % 0 /100 WBC (0); Platelet Count 80 Thou/mm3 (140-440); RDW Standard Deviation 45.1 fL (36.4-46.3); Red Blood Count 2.38 Miln/mm3 (4.00-5.20); White Blood Count 15.1 Thou/mm3 (3.6-11.0)
[2025-08-11 20:53] LABS: Hemoglobin 7.4 g/dL (12.0-16.0)
[2025-08-11 20:58] LABS: INR 1.2 (0.9-1.3); Partial Thromboplastin Time 45.6 Seconds (22.0-36.0); Prothrombin Time 13.4 Seconds (9.0-12.2)
[2025-08-11 21:15] LABS: Alanine Aminotransferase < 7 U/L (10-49); Albumin, Serum 1.7 gm/dL (3.5-5.0); Albumin/Globulin Ratio 1.9 (1.2-2.2); Alkaline Phosphatase 50 U/L (46-116); Anion Gap 8 (7-16); Aspartate Amino Transferase 12 U/L (0-34); BUN/Creatinine Ratio 10 Ratio (12-20); Bilirubin,Total 0.7 mg/dL (0.3-1.2); Blood Urea Nitrogen 5 mg/dL (9-23); Carbon Dioxide 19.8 mMol/L (20.0-31.0); Chloride 116 mMol/L (98-107); Creatinine (Component) 0.5 mg/dL (0.6-1.3); Estimated Creatinine Clearance 185.7 mL/min (>60); Globulin 0.9 gm/dL (2.3-3.5); Glucose 114 mg/dL (74-106); Magnesium 1.3 mg/dL (1.6-2.6); Osmolality,Calculated 285 (275-295); Potassium 3.8 mMol/L (3.4-5.1); Sodium 144 mMol/L (136-145); Total Protein 2.6 gm/dL (5.7-8.2); eGFR > 60 See Note
[2025-08-11 21:16] LABS: Calcium 7.4 mg/dL (8.3-10.6); Calcium (Corrected) 9.2 mg/dL (8.5-10.1)
[2025-08-11 21:30] LABS: Base Excess -6 (-3-3); HCO3 20 mEq/L (20-26); Inspired Oxygen, FIO2 21 %; O2 Saturation 100 % (91-98); PCO2 39 mmHg (32.0-48.0); PO2 200 mmHg (83-108); pH, Arterial 7.31 (7.35-7.45)
[2025-08-11 21:32] LABS: Allen Test Performed/OK; Puncture Site Arterial Line
--- NOTE | 2025-08-11 22:17 | PD.GYNPROC ---
Operative Note - EDUCATIONAL THERAPY TEACHER Procedure Date of procedure: 08/11/25 Procedure Performed: Abdominal hysterectomy left salpingo-oophorectomy Packing of vaginal vault Indication: Postop day#0 status post delivery hemorrhage Uterine atony not responding to uterotonic's Hemodynamically unstable Profuse and excessive vaginal bleeding Pre-Op diagnosis: Postop day #0 status post delivery hemorrhage Uterine atony Post-Op diagnosis: Postop day #0 status post delivery hemorrhage Uterine atony Excessive bleeding from lower uterine segment and cervix Anesthesia type: General Procedure description: Called and notified that the patient was experiencing profuse vaginal bleeding due to uterine atony. I ordered immediately returned to the operating room, to consent for Bakri balloon placement possible hysterectomy, transfuse 2 units of packed red blood cells, and type and cross for 4 units of additional packed red blood cells and 2 units of fresh frozen plasma. I arrived to consent the patient and she signed the consent prior to administration of anesthesia. She underwent induction of general anesthesia. She was placed in the stirrups and prepped and draped in usual sterile fashion. The Bakri Balloon would not stop the bleeding so we proceeded with hysterectomy. She was placed in the supine position and prepped and draped. The scalpel was used to remove the monocryl incisional sutures. Metzenbaum scissors and pickup with teeth were used to take down the subcutaneous sutures including the fascial sutures and the muscle rectus sutures and the peritoneal sutures. Her uterus was atonic and we proceeded with hysterectomy. Using the Enseal X1 large jaw beginning on the right side the round ligament was grasped with the Enseal X1 large jaw fulgurated and transected hemostasis achieved. The utero ovarian ligament was grasped with the Enseal X1 large jaw fulgurated transected and hemostasis was achieved. The uterine artery was grasped with the Enseal X1 large jaw fulgurated transected and hemostasis was achieved. The same procedure was repeated on the left side. At the level of the prior low-transverse incision the Tenzin clamps were grasped on both sides and using the scalpel the uterus was amputated. The cervical cuff was held with Michael clamps. And the cervical cuff was closed with a series of 0 Vicryl interrupted [id number] sutures. Hemostasis was achieved. At this point an x-ray was performed as no instrument count was performed preoperatively. The patient was examined vaginally and noted to have significant persistent vaginal bleeding therefore the decision was made to remove more cervical tissue. The uterosacral ligaments on both sides were then doubly clamped with Tenzin clamps transected and suture-ligated. The cardinal ligaments on either side were doubly clamped transected and suture-ligated. The vaginal cuff was closed with a series of 0 Vicryl suture in a [id number] fashion. There was noted to be bleeding around the area of the left ovary and fallopian tube. The decision was made to remove the left fallopian tube and ovary to ensure adequate hemostasis the infundibulopelvic ligament was doubly grasped with Tenzin clamps transected and suture-ligated with 0 Vicryl hemostasis was achieved. The pelvis was copiously irrigated with warm normal saline solution. The peritoneal cavity was observed for several minutes and found to be hemostatic. The peritoneum closed with 0 chromic suture in running interlocking fashion. The rectus muscle was closed with 0 chromic suture in a running interlocking fashion. The fascia was closed with 0 Vicryl beginning at each angle in and ending in the center in a running interlocking fashion. The subcutaneous tissue was irrigated with Normal Saline solution and found to be hemostatic closed with 2-0 chromic catgut suture running fashion , the skin was closed with 4-0 Monocryl. A Dermabond Prineo dressing was applied. A sterile pressure dressing was applied. She was placed in the dorsolithotomy position. Attention was turned to the vaginal vault where the patient was examined and found to have no significant vaginal bleeding. Curlex roll was placed in the vaginal vault for packing and tamponade of vaginal cuff to prevent bleeding. Patient was reversed from general anesthesia and transferred to the ICU. I discussed with the patient and her the nature of her condition intraoperative findings expectation for recovery all questions answered. I consulted with Dr. Delgado the ICU engraver hand soft metals. I asked for assistance in management of DIC and fluid and electrolyte management. I requested that it would be my preference to keep the hemoglobin above 10.0 and that she remain on Zosyn until discharge due to the endometritis with increased risk of pelvic infection due to the return to the OR. Although no ventricular peritoneal shunt was seen at any time during her surgery this is another reason we will continue the Zofran until discharge. Fluid amount (mL): 4,200 Urine output (mL): 600 Specimen: uterus, left tube, left ovary and other (Cervix) Estimated blood loss (ml): 2,500 Findings: Atonic uterus Bleeding from the lower uterine segment and cervix Complications: none Surgical staff Surgeon: Dr Lupe Lyons, PRADIP [address] Dr[address] Reordering Clerk Operation Date: 08/11/25 16:20 <No data on this case meets the specified criteria> Diagnosis Problem List Completed Was Problem List Reviewed/Reconciled?: Yes
[2025-08-11 22:33] LABS: Basophils # (Auto) 0.1 Thou/mm3 (0.0-0.2); Basophils % (Auto) 0 % (0-2.5); Eosinophils # (Auto) 0.0 Thou/mm3 (0.0-0.5); Eosinophils % (Auto) 0 % (0-10); Hematocrit 27.4 % (36.0-46.0); Hemoglobin 9.3 g/dL (12.0-16.0); Immature Granulocytes Auto 0.13 Thou/mm3 (0.00-0.00); Lymphocytes # (Auto) 1.2 Thou/mm3 (1.0-4.8); Lymphocytes % (Auto) 6 % (10-50); Mean Corpuscular HGB Conc 33.9 g/dl (31.0-37.0); Mean Corpuscular Hemoglobin 28.4 pg (25.0-35.0); Mean Corpuscular Volume 84 fL (80-100); Monocytes # (Auto) 1.5 Thou/mm3 (0.0-0.8); Monocytes % (Auto) 8 % (0-12); Neutrophils # (Auto) 15.5 Thou/mm3 (1.8-7.7); Neutrophils % (Auto) 84 % (37-80); Nucleated Red Blood Cell # 0.00 Thou/mm3 (0.00-0.00); Nucleated Red Blood Cell % 0 /100 WBC (0); RDW Standard Deviation 64.0 fL (36.4-46.3); Red Blood Count 3.28 Miln/mm3 (4.00-5.20); White Blood Count 18.3 Thou/mm3 (3.6-11.0)
--- NOTE | 2025-08-11 22:33 | SUR.PHASEI ---
pt received from OR in recovery bay 1. pt awake and alert, breathing unlabored on oxymask 5l. v/s stable. pt dressing to lower abd and peripad cdi. report received from José Miguel FLOWER, [email or web address] RN, jamin RN, and tabby RN.
[2025-08-11 22:34] LABS: Platelet Count 72 Thou/mm3 (140-440)
[2025-08-11 22:48] LABS: D-Dimer 581 ng/mL (<600)
--- NOTE | 2025-08-11 23:05 | OBDSUM_ITS ---
Vacuum Assisted Delivery Vacuum Application Vacuum type:: Mityvac Vacuum application:: flexing median Total vacuum time (min):: 2 Maximum pressure (cm Hg):: 50 Cup Placement Flexion point identified:: Yes Cup approp. for head position:: Yes Maternal tissue excluded:: Yes Vacuum Procedure Number of pulls (contractions):: 3 Number of pop-offs:: 2 Recommended range maintained:: Yes Vacuum reduced between pulls:: Yes Advancement made each pull:: No Vacuum successful:: No Data ([place]) Data Hx Section: No : 1 Term: 0 : 0 Livin Abortions: Spontaneous & Theraputic: 0 Delivery Data ([place]) Labor Data Initiation of labor: Induction Induction/Augmentation Agent: Pitocin ROM date: 08/11/25 ROM time: 09:02 Amniotic membrane rupture type: Artificial Amniotic fluid description: Clear Delivery Data EDC: 08/12/25 EDC calculated by:: LMP/early US confirmation Onset of labor date: 08/11/25 Onset of labor time: 02:42 Complete dilation date: 08/11/25 Complete dilation time: 14:00 [place] delivery date: 08/11/25 delivery time: 16:39 Gestational age (weeks): 39 Gestational age (days): 6 Placenta delivery date: 08/11/25 Placenta delivery time: 16:40 Stage 1 total time: Labor - Stage 1 Duration 11 hours and 18 minutes Delivered by: Kyrie Andrade Delivery nurse: VALERIE Romo nurse: DAISY [place] Layer at delivery: Yes (DR. TAYLOR) Other staff at delivery: JUAN PABLO, CLEMENTE, RAMWILLIE Delivery Method Delivery method: Low Transverse Presentation: Vertex position: OA Anesthesia Type Anesthesia Type: General and Epidural Anesthesia type: General Placenta Placenta delivery description: Manual Removal Cord blood sent to lab: Yes cord blood collection: Cord Blood Type, Arterial Cord Blood Gas and Venous Cord Blood Gas Episiotomy Episiotomy description: None EBL Estimated blood loss (ml): 1,000 Umbilical Cord cord description: 3 Vessels Complications Complications: Uterine atony responding to uterotonics and TXA. [place] Data ([place]) [place] Data order: 1 [place]'s gender: Male Identification band number: [id number] weight (gms): 8 lb 4.63 oz Weight (pounds): 8 lbs and 4.6 ozs [place] length: 20.5 in 1 minute: 3 5 minutes: 8 Additional Comments Additional comments: Cord pH 7.25.
--- NOTE | 2025-08-11 23:16 | PD.RESCONSUL ---
HPI Data of Consult Requesting Physician: Kyrie Andrade MD Admitting Provider: Kyrie Andrade MD Attending Provider: Kyrie Andrade MD Primary Care Provider: Physician No Primary/Family Consult Narrative History of present illness: The patient is a 29-year-old female with significant past medical history of indwelling ventriculoperitoneal shunt that was placed after an enterocele repair years ago at [facility] due to postsurgical hydrocephalus and GERD was admitted on 08/10/2025 for labor delivery. Currently her AUDIO/VIDEO ENGINEER shunt is nonfunctioning, and patient does not have any hydrocephalus with an MRI during her being normal. Her neurologist Dr. Darien Zurita had evaluated her during care. In the hospital, the patient's labor contractions were not adequate, and failed vacuum assisted vaginal delivery, and underwent by Dr. Andrade today evening, and was plan to discharge home. However, she continued to have profuse vaginal bleeding due to uterine atonia. The patient was taken back to the OR, and required abdominal hysterectomy, left salpingo oophorectomy, and packaging of vaginal vault. During revision OR, patient lost about 2.5 L of blood. The patient denied any headache, nausea or vomiting, fever or chills, SOB, chest pain, any changes in bowel or bladder habit, or leg swelling. She denied orthopnea or PND, but admitted pain at the surgical site. During my evaluation, patient's blood pressure was 124/86, pulse 100, RR 14, saturating 98% on room air. Labs were significant for white count 18.3, hemoglobin 9.3, platelet 72, PT 13.4, INR 1.2, APTT 45.6, D-dimer 581, fibrinogen pending, chloride 116, bicarb 19.8, anion gap 8, BUN 5, creatinine 0.5, blood sugar 114, corrected calcium 9.2, magnesium 1.3, total protein 2.6, albumin 1.7, blood cultures pending. PMH: As mentioned above Surgical history: AUDIO/VIDEO ENGINEER shunt during childhood Family history: Hypertension and breast cancer Social history: Denies alcohol, drug or smoking. Medications: vitamins, omeprazole Allergies: No known allergies The patient received total of 4 unit of PRBC, 2 unit of FFP, Zosyn 3.375 g x 1, and was upgraded to ICU for further management of possible DIC and severe hemorrhage. cc:: cc: Kyrie Andrade MD Review of Systems Review of Systems Systems Reviewed: All systems reviewed, normal except as documented (As above) Exam Vital Signs Temp Pulse Resp BP Pulse Ox O2 Del Method O2 Flow Rate 98.6 F 102 H 14 125/68 100 Room Air 5 08/11/25 23:05 08/11/25 23:05 08/11/25 23:05 08/11/25 23:05 08/11/25 23:05 08/11/25 18:26 08/11/25 22:50 Narrative Exam General: No acute distress, alert and oriented x 3 HEENT: Moist mucous membranes, oropharynx clear Neck: Supple, No masses, No JVD CVS: S1S2 Regular rate and rhythm, No murmurs, rubs or gallops Lungs: Clear to auscultation with no accessory use, no wheeze no rhonchi Abd: Soft, mildly distended in all quadrant, surgical site under clean dressing, +BS, no organomegaly Ext: No edema, warm and well perfused Skin: No rash Psych: Appropriate mood and affect Results Labs 08/12/25 04:55 08/11/25 20:21 Labs: Short CBC 08/10/25 08/11/25 08/11/25 Range/Units 23:55 20:21 21:22 WBC 14.4 H 15.1 H 18.3 H (3.6-11.0) Thou/mm3 Hgb 12.7 7.4 L D 9.3 L D (12.0-16.0) g/dL Hct 36.6 21.7 L* D 27.4 L (36.0-46.0) % Plt Count 186 80 L D 72 L (140-440) Thou/mm3 BMP 08/11/25 20:21 Sodium 144 Potassium 3.8 Chloride 116 H Carbon Dioxide 19.8 L BUN 5 L Creatinine 0.5 L Glucose 114 H Calcium 7.4 L Liver Function 08/11/25 Range/Units 20:21 Total Bilirubin 0.7 (0.3-1.2) mg/dL AST 12 (0-34) U/L ALT < 7 L (10-49) U/L Alkaline Phosphatase 50 (46-116) U/L Albumin 1.7 L (3.5-5.0) gm/dL ABG Interpretation ABG results: 08/11/25 21:23 ABG pH 7.31 L ABG pCO2 39 ABG pO2 200 H ABG HCO3 20 ABG O2 Saturation 100 H ABG Base Excess -6 L Quality Measures Quality Measures VTE prophylaxis (SCD's) Medications Home Medications and Allergies Home Medications ?Medication ?Instructions ?Recorded ?Confirmed ?Type vit no.95-ferrous 1 tab PO .QD 05/20/25 08/10/25 History fumarate 28 mg-folic acid 800 mcg tablet () Allergies Allergy/AdvReac Type Severity Reaction Status Date / Time No Known Allergies Allergy Verified 08/10/25 21:05 Visit Medications Al Hydrox/Mg Hydrox/Simethicone (Mg Hyd/Al Hyd/Uziel (Maalox Reg) Susp 30 Ml Udc) 30 ml PO Q4HR PRN PRN Reason: Heartburn or Upset Stomach Stop: 09/10/25 19:47 Benzocaine (Benzo/Lano/Aloe (Dermoplast) 60 Gm Can) 1 spray TOP PRN PRN PRN Reason: PERINEAL DISCOMFORT Stop: 09/09/25 23:31 Diphtheria/Tetanus/Acell Pertussis (Diphth,Pertuss(Acell),Tet Vac 0.5 Ml Syr- Adult) 0.5 ml IMi X1 PRN PRN Reason: SEE COMMENTS Docusate Sodium (Docusate Sod 100 Mg Capsule) 100 mg PO QDAY [facility] Stop: 09/11/25 08:59 Hydromorphone HCl (Hydromorphone 1 Mg/Ml Seasonal Sales Associate Syringe 30ml) 30 mg IV PER ORDER PRN; Protocol PRN Reason: Per Protocol (Pain) Stop: 08/16/25 17:34 Last Admin: 08/11/25 17:56 Dose: 30 mg Lactated Ringer's (Lactated Ringers) 1,000 mls @ 100 mls/hr IV .Q10H NAVEED Stop: 09/09/25 23:44 Last Admin: 08/11/25 01:20 Dose: 100 mls/hr Lactated Ringer's (Lactated Ringers) 500 mls @ 999 mls/hr IV .Q31M PRN PRN Reason: HR tracing (Per Policy) Stop: 09/09/25 23:31 Tranexamic Acid (Tranexamic Acid Ivpb) 1,000 mg in 100 mls @ 200 mls/hr IV [id number] PRN PRN Reason: BLEEDING Lactated Ringer's (Lactated Ringers) 1,000 mls @ 100 mls/hr IV .Q10H NAVEED Stop: 09/11/25 09:14 Oxytocin/Sodium Chloride (Pitocin 20 Units In Ns) 20 unit in 1,000 mls @ 125 mls/hr IV .Q8H NAVEED Stop: 08/12/25 09:34 Promethazine HCl 25 mg/ Sodium (Chloride) 51 mls @ 153 mls/hr IV Q6HR PRN PRN Reason: NAUSEA Stop: 09/10/25 17:45 Magnesium Sulfate (Magnesium Sulfate Ivpb) 4 gm in 50 mls @ 12.5 mls/hr IV X1 ONE Stop: 08/12/25 02:38 Ketorolac Tromethamine (Ketorolac Inj 30 Mg/Ml Vial) 30 mg IVP Q6HR PRN; Protocol PRN Reason: BREAKTHROUGH PAIN (SEVERE) Stop: 08/13/25 17:34 Last Admin: 08/11/25 18:03 Dose: 30 mg Magnesium Hydroxide (Milk Of Magnesia Susp 30 Ml Udc) 30 ml PO [id number] PRN PRN Reason: CONSTIPATION Stop: 09/10/25 17:34 Measles/Mumps/Rubella Vaccine Live (Measles, Mumps & Rubella Vacc 0.5 Ml Vial) 0.5 ml SCi X1 PRN PRN Reason: if non-immune or equivocal Methylergonovine Maleate (Methylergonovine Inj 0.2 Mg/Ml Vial) 0.2 mg IM Q6HR PRN PRN Reason: Excessive bleeding Stop: 08/18/25 17:34 Simethicone (Simethicone 80 Mg Chew) 80 mg PO Q4HR PRN PRN Reason: GAS Stop: 09/10/25 17:34 Discontinued Medications Carboprost Tromethamine (Carboprost Trometh Inj 250 Mcg/Ml Vial) 250 mcg IM X1 PRN PRN Reason: refractory hemorrhage Enoxaparin Sodium (Enoxaparin Sod Inj 40 Mg/0.4 Ml Syringe) 40 mg SC QDAY NAVEED Stop: 08/26/25 08:59 Famotidine (Famotidine Inj 10 Mg/Ml Vial 2 Ml) 20 mg IV X1 PRN PRN Reason: SEE COMMENTS Stop: 08/12/25 16:10 Last Admin: 08/11/25 16:19 Dose: 20 mg Fentanyl Citrate (Fentanyl Cit Inj 50 Mcg/Ml Amp 2ml) 100 mcg IVP Q1HR PRN PRN Reason: PAIN SCALE 4-6 (Moderate Stop: 08/15/25 23:31 Last Admin: 08/11/25 01:44 Dose: 100 mcg Oxytocin/Sodium Chloride (Pitocin 20 Units In Ns) 20 unit in 1,000 mls @ 125 mls/hr IV .Q8H NAVEED Stop: 09/09/25 23:44 Oxytocin/Sodium Chloride (Pitocin 30 Units In Ns) 30 unit in 500 mls @ 1 mls/hr IV .Q24H PRN; Protocol PRN Reason: INDUCTION Stop: 09/10/25 04:33 Last Titration: 08/11/25 15:08 Dose: 1 milliunit/min, 1 mls/hr Cefazolin Sodium (Ancef 2gm Ivpb) 2 gm in 100 mls @ 200 mls/hr IV X1 PRN PRN Reason: SEE COMMENTS Stop: 08/12/25 16:10 Last Admin: 08/11/25 16:19 Dose: 200 mls/hr Ampicillin Sodium/Sulbactam (Sodium 3 gm/ Sodium Chloride) 100 mls @ 200 mls/hr IV Q6HR NAVEED Stop: 08/18/25 17:59 Last Admin: 08/11/25 18:04 Dose: 200 mls/hr Calcium Gluconate/Sodium Chloride (Calcium Gluc/Ns 1000mg Ivpb) 1,000 mg in 50 mls @ 50 mls/hr IV X1 ONE Stop: 08/11/25 20:31 Piperacillin/Tazobactam/Dextrose (Zosyn) 3.375 gm in 50 mls @ 100 mls/hr IV Q6HR ONE; Protocol Stop: 08/11/25 22:32 Ibuprofen (Ibuprofen Tab 400 Mg Tablet) 800 mg PO X1 PRN PRN Reason: uterine cramping Lidocaine HCl (Lidocaine Hcl 1% 20 Ml Vial) 20 ml INFL X1 PRN PRN Reason: EPISIOTOMY PAIN Meperidine HCl (Meperidine Inj 50 Mg/Ml Vial) 50 mg IVP X1 ONE Stop: 08/11/25 17:36 Last Admin: 08/11/25 18:00 Dose: 50 mg Methylergonovine Maleate (Methylergonovine Inj 0.2 Mg/Ml Vial) 0.2 mg IM X1 PRN PRN Reason: Excessive Bleeding Methylergonovine Maleate (Methylergonovine 0.2 Mg Tablet) 0.2 mg PO Q6HR PRN PRN Reason: Excessive bleeding Stop: 08/18/25 17:34 Metoclopramide HCl (Metoclopramide Inj 5 Mg/Ml Vial 2 Ml) 10 mg IVP X1 ONE; Protocol Stop: 08/11/25 16:17 Last Admin: 08/11/25 16:19 Dose: 10 mg Mineral Oil (Mineral Oil 30 Ml Udc) 30 ml TOP PRN PRN PRN Reason: To perineum for delivery. Stop: 09/09/25 23:31 Misoprostol (Misoprostol 200 Mcg Tablet) 800 mcg MD X1 PRN PRN Reason: BLEEDING Last Admin: 08/11/25 17:12 Dose: 800 mcg Oxytocin (Oxytocin Inj 10 Unit/Ml Vial) 10 unit IM X1 PRN PRN Reason: After placenta delivers Promethazine HCl (Promethazine Inj 25 Mg/Ml Vial) 25 mg IV Q6HR PRN PRN Reason: NAUSEA Stop: 09/10/25 17:34 Assessment & Plan Plan The patient is a 29-year-old female with significant past medical history of indwelling ventriculoperitoneal shunt that was placed after an enterocele repair years ago at [facility] due to postsurgical hydrocephalus and GERD was admitted on 08/10/2025 for labor delivery. The patient received total of 4 unit of PRBC, 2 unit of FFP, Zosyn 3.375 g x 1, and was upgraded to ICU for further management of possible DIC and severe hemorrhage. Neuro: #History of AUDIO/VIDEO ENGINEER shunt during childhood Currently her AUDIO/VIDEO ENGINEER shunt is nonfunctioning, and patient does not have any hydrocephalus with an MRI during her being normal. Her neurologist Dr. Darien Zurita had evaluated her during care. - Monitor for any signs and symptoms of infection CVS: #Sinus tachycardia 2/2 acute blood loss anemia 2/2 vaginal bleed - Currently stable Pulmonology: - No acute issues GI: #Hypoalbuminemia #Hypoproteinemia Likely secondary to shift of liver function to produce more coagulation factor in the setting of possible underlying coagulation disorder as evidenced by elevated PT and APTT -Daily a.m. labs for CMP -Monitor closely #History of GERD Patient is on omeprazole at home. - May consider starting on pantoprazole Renal/: #Mild non-anion gap hyperchloremic metabolic acidosis pH 7.31, bicarb 19.8, pCO2 39 Likely secondary to hypoalbuminemia leading to decreased buffering capacity Lactic acid 1.8. -May consider albumin infusion if bicarb decreases further #Hypomagnesemia Mg 1.3 Repleted with MgSO4 4g -Daily am labs for Mg. REVERSING MILL ROLLER: #S/p abdominal hysterectomy, left salpingo oophorectomy, and packaging of vaginal vault #S/p In the hospital, the patient's labor contractions were not adequate, and failed vacuum assisted vaginal delivery, and underwent by Dr. Andrade today evening, and was plan to discharge home. However, she continued to have profuse vaginal bleeding due to uterine atonia. The patient was taken back to the OR, and required . During revision OR, patient lost about 2.5 L of blood. -Dr. 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 - Cryoprecipitate was initially ordered, but later canceled - Ordered path review smear - Daily a.m. labs for CBC Endocrinology: - No active issues Infectious disease: #Asymptomatic bacteriuria in - Urine culture ordered - On Zosyn also to prevent any AUDIO/VIDEO ENGINEER shunt infection - Ordered blood and urine culture MSK: - No active issue Skin: - No active issue Health maintenance: Dispo: Patient upgraded to ICU for further management of severe symptomatic acute blood loss anemia Diet: Regular diet Lines: Peripheral lines DVT prophylaxis: SCDs CODE STATUS: Full code The patient's management plan was discussed with my attending physician MD Pedro Wilson MD, PGY3 Attending Provider Attestation/Addendum 29-year-old female with history of nonfunctioning AUDIO/VIDEO ENGINEER shunt tube. The patient recently had and then today underwent hysterectomy and bilateral salpingo-oophorectomy during which she had acute blood loss anemia. The patient was transferred to the ICU for further close monitoring. Her pro time is 13, PTT 45, fibrinogen 244, platelet count 72,000. Latest blood pressure is 109/65 heart rate 90. The patient is afebrile. I discussed with and supervised the resident physician who took care of this patient. I agree with the assessment and plan as above.
[2025-08-11 23:39] LABS: Fibrinogen 244 mg/dL (175-375)
[2025-08-12] VITALS (49 sets, daily range): BP systolic 91–134; BP diastolic 60–85; PULSE 4–121; RESP 14–100; TEMP 36.2–38.9; O2SAT 95–100; BMI 36.5
--- NOTE | 2025-08-12 00:05 | SUR.PHASEI ---
pt awake and alert, breathing unlabored on room air. v/s stable. pt dressing to lower abd and peripad cdi. report called to Rich Rn. pt will be transferred to room at this time.
[2025-08-12] MEDS: CALCIUM GLUC/NS 1000MG IVPB 1,000 MG/50 ML BAG 50 MG IV (00:19)
[2025-08-12] MEDS: Magnesium Sulfate 4 GM Ivpb 4 GM/50 ML BAG IV (00:30)
[2025-08-12] MEDS: MORPHINE SULF INJ 4 MG/ML VIAL 2 MG IVP ×2 (01:13→02:49)
--- NOTE | 2025-08-12 01:37 | PC.NURSE ---
multiple blood products on standby, clarified with MD Delgado, stated to transfuse 1unit of PRBC for now, to hold other blood products and to recheck h&h together in AM lab draw. also pt c/o pain, new medication ordered. and to cancel toradol order
[2025-08-12] MEDS: PIPER/TAZO 3.375 GM PREMIX 3.375 GM/50 ML BAG IV ×2 (02:35→18:29)
[2025-08-12] MEDS: HYDROmorphone INJ 2 MG/ML VIAL 1 MG IVP ×2 (04:04→08:13)
[2025-08-12 04:18] LABS: Slide Review Platelets confirmed
[2025-08-12 05:32] LABS: Basophils # (Auto) 0.0 Thou/mm3 (0.0-0.2); Basophils % (Auto) 0 % (0-2.5); Eosinophils # (Auto) 0.0 Thou/mm3 (0.0-0.5); Eosinophils % (Auto) 0 % (0-10); Hematocrit 29.7 % (36.0-46.0); Hemoglobin 10.2 g/dL (12.0-16.0); Immature Granulocytes Auto 0.07 Thou/mm3 (0.00-0.00); Lymphocytes # (Auto) 1.9 Thou/mm3 (1.0-4.8); Lymphocytes % (Auto) 13 % (10-50); Mean Corpuscular HGB Conc 34.3 g/dl (31.0-37.0); Mean Corpuscular Hemoglobin 28.5 pg (25.0-35.0); Mean Corpuscular Volume 83 fL (80-100); Monocytes # (Auto) 1.1 Thou/mm3 (0.0-0.8); Monocytes % (Auto) 8 % (0-12); Neutrophils # (Auto) 11.7 Thou/mm3 (1.8-7.7); Neutrophils % (Auto) 79 % (37-80); Nucleated Red Blood Cell # 0.00 Thou/mm3 (0.00-0.00); Nucleated Red Blood Cell % 0 /100 WBC (0); Platelet Count 82 Thou/mm3 (140-440); RDW Standard Deviation 63.7 fL (36.4-46.3); Red Blood Count 3.58 Miln/mm3 (4.00-5.20); White Blood Count 14.9 Thou/mm3 (3.6-11.0)
[2025-08-12 06:04] LABS: Fibrinogen 288 mg/dL (175-375)
[2025-08-12 06:21] LABS: Path Review Blood Smear Sent to Pathologist
[2025-08-12 06:26] LABS: Alanine Aminotransferase < 7 U/L (10-49); Albumin, Serum 2.3 gm/dL (3.5-5.0); Albumin/Globulin Ratio 1.8 (1.2-2.2); Alkaline Phosphatase 58 U/L (46-116); Anion Gap 8 (7-16); Aspartate Amino Transferase 17 U/L (0-34); BUN/Creatinine Ratio 8 Ratio (12-20); Bilirubin,Total 1.5 mg/dL (0.3-1.2); Blood Urea Nitrogen 5 mg/dL (9-23); Calcium 7.1 mg/dL (8.3-10.6); Calcium (Corrected) 8.5 mg/dL (8.5-10.1); Carbon Dioxide 22.0 mMol/L (20.0-31.0); Chloride 110 mMol/L (98-107); Creatinine (Component) 0.6 mg/dL (0.6-1.3); Estimated Creatinine Clearance 156.1 mL/min (>60); Globulin 1.3 gm/dL (2.3-3.5); Glucose 104 mg/dL (74-106); Magnesium 2.0 mg/dL (1.6-2.6); Osmolality,Calculated 276 (275-295); Phosphorous 3.5 mg/dL (2.4-5.1); Potassium 3.8 mMol/L (3.4-5.1); Sodium 140 mMol/L (136-145); Total Protein 3.6 gm/dL (5.7-8.2); eGFR > 60 See Note
--- NOTE | 2025-08-12 07:07 | ESPR_ITS ---
Subjective Subjective Interval history: Patient reports incisional pain and irritation of her throat. She is getting pain relief with pain medication. She is tolerating a clear liquid diet without nausea or vomiting. Urine output is adequate with Seo catheter in place. No vaginal bleeding. Denies any dizziness or lightheadedness. Denies any chest pain palpitation shortness of breath or lower extremity pain. She denies passing flatus. Exam Vital Signs Temp Pulse Resp BP Pulse Ox O2 Del Method O2 Flow Rate 98.8 F 108 H 21 H 109/70 99 Room Air 5 08/12/25 05:00 08/12/25 06:00 08/12/25 06:00 08/12/25 06:00 08/12/25 06:00 08/12/25 05:00 08/11/25 22:50 Routine Respiratory Exam Comments: Clear to auscultation bilaterally Routine Cardiovascular Exam Comments: Tachycardic but regular rhythm Routine Abdominal Exam Comments: Nondistended, dressing dry and intact. Routine Extremities Exam Comments: Nontender Objective Labs 08/12/25 04:55 08/12/25 04:55 Labs: Laboratory Results - last 24 hr 08/10/25 08/11/25 08/11/25 23:55 20:21 21:22 WBC 15.1 H 18.3 H RBC 2.38 L 3.28 L Hgb 7.4 L D 9.3 L D Hct 21.7 L* D 27.4 L MCV 91 84 MCH 31.1 28.4 MCHC 34.1 33.9 RDW Std Deviation 45.1 64.0 H Plt Count 80 L D 72 L Neut % (Auto) 85 H 84 H Lymph % (Auto) 6 L 6 L [place] % (Auto) 9 8 Eos % (Auto) 0 0 Baso % (Auto) 0 0 Neut # (Auto) 12.8 H 15.5 H Lymph # (Auto) 0.9 L 1.2 [place] # (Auto) 1.3 H 1.5 H Eos # (Auto) 0.0 0.0 Baso # (Auto) 0.0 0.1 Immature Gran # (Auto) 0.12 H 0.13 H Absolute Nucleated RBC 0.00 0.00 Immature Gran % 1 H 1 H Nucleated RBC % 0 0 Smear Path Review PT 13.4 H INR 1.2 APTT 45.6 H Fibrinogen 244 D-Dimer 581 Puncture Site ABG pH ABG pCO2 ABG pO2 ABG HCO3 ABG O2 Saturation ABG Base Excess FiO2 Sodium 144 Potassium 3.8 Chloride 116 H Carbon Dioxide 19.8 L Anion Gap 8 BUN 5 L Creatinine 0.5 L Estim Creat Clear Calc 185.7 eGFR > 60 BUN/Creatinine Ratio 10 L Glucose 114 H Calculated Osmolality 285 Lactic Acid 1.8 Calcium 7.4 L Corrected Calcium 9.2 Phosphorus Magnesium 1.3 L Total Bilirubin 0.7 AST 12 ALT < 7 L Alkaline Phosphatase 50 Total Protein 2.6 L Albumin 1.7 L Globulin 0.9 L Albumin/Globulin Ratio 1.9 Misc Test Result Platelets confirmed Blood Type A Positive Antibody Screen NEGATIVE Crossmatch See Detail Blood Bank Wristband ID Yes Blood Bank Comment FFP Ready 08/11/25 08/12/25 21:23 04:55 WBC 14.9 H RBC 3.58 L Hgb 10.2 L Hct 29.7 L MCV 83 MCH 28.5 MCHC 34.3 RDW Std Deviation 63.7 H Plt Count 82 L Neut % (Auto) 79 Lymph % (Auto) 13 [place] % (Auto) 8 Eos % (Auto) 0 Baso % (Auto) 0 Neut # (Auto) 11.7 H Lymph # (Auto) 1.9 [place] # (Auto) 1.1 H Eos # (Auto) 0.0 Baso # (Auto) 0.0 Immature Gran # (Auto) 0.07 H Absolute Nucleated RBC 0.00 Immature Gran % 1 H Nucleated RBC % 0 Smear Path Review Sent to Pathologist PT INR APTT Fibrinogen 288 D-Dimer Puncture Site Arterial Line ABG pH 7.31 L ABG pCO2 39 ABG pO2 200 H ABG HCO3 20 ABG O2 Saturation 100 H ABG Base Excess -6 L FiO2 21 Sodium 140 Potassium 3.8 Chloride 110 H Carbon Dioxide 22.0 Anion Gap 8 BUN 5 L Creatinine 0.6 Estim Creat Clear Calc 156.1 eGFR > 60 BUN/Creatinine Ratio 8 L Glucose 104 Calculated Osmolality 276 Lactic Acid Calcium 7.1 L Corrected Calcium 8.5 Phosphorus 3.5 Magnesium 2.0 Total Bilirubin 1.5 H D AST 17 ALT < 7 L Alkaline Phosphatase 58 Total Protein 3.6 L Albumin 2.3 L D Globulin 1.3 L Albumin/Globulin Ratio 1.8 Misc Test Result Blood Type Antibody Screen Crossmatch Blood Bank Wristband ID Blood Bank Comment Impressions Impression: Postop day #1 status post delivery due to arrest of descent Postop day #1 status post abdominal hysterectomy left salpingo-oophorectomy with vaginal packing for hemorrhage due to uterine atony with presumptive endometritis Plan remove dressing DC vaginal packing later today Maintain Seo catheter until vaginal packing removed Monitor H&H and maintain hemoglobin above 10.0 Continue Zosyn until discharge Defer management for fluid and electrolyte management and any coagulopathy as well as stability for transfer to floor to ICU radio electronics officer. I discussed with the patient the nature of her condition, the intraoperative findings, the expectation for recovery, all questions answered. ABG Interpretation ABG results: 08/11/25 21:23 ABG pH 7.31 L ABG pCO2 39 ABG pO2 200 H ABG HCO3 20 ABG O2 Saturation 100 H ABG Base Excess -6 L Assessment & Plan Time Spent With Patient Time: Total time spent is greater than 50% in coordination of care (as documented) at patient's floor/unit and/or counseling patient:
[2025-08-12] MEDS: DOCUSATE SOD 100 MG CAPSULE PO (08:13)
[2025-08-12 08:21] LABS: INR 1.0 (0.9-1.3); Partial Thromboplastin Time 33.3 Seconds (22.0-36.0); Prothrombin Time 11.4 Seconds (9.0-12.2)
--- NOTE | 2025-08-12 09:44 | ESPR_ITS ---
<Statement entered by Rhonda Landers MD - 08/13/25 11:56> TOTAL TIME: 45MINUTES ON DIRECT MEDICAL CARE, MANAGEMENT - COORDINATION AND COUNSELING > 50% OF TOTAL TIME I saw and evaluated the patient. I reviewed the resident?s note and agree with findings and plan as documented in the resident?s note. Transferred from operating room to ICU for hemorrhage. Hemostasis achieved after undergoing emergency followed by hysterectomy. Coagulopathy related to emergency blood product transfusions. Now resolved. No significant bleeding noted this morning. Packing is relatively dry. Hemodynamics are acceptable. Tachycardia is noted but in the absence of ongoing bleeding, and the patient does have significant pain being managed with Dilaudid. Patient can be transferred out of ICU with hospitalist continuing to help manage medical problems. Documentation for date of: 08/12/25 Subjective Subjective Interval history: The patient is a 29-year-old female with significant past medical history of indwelling ventriculoperitoneal shunt that was placed after an enterocele repair years ago at [facility] due to postsurgical hydrocephalus and GERD was admitted on 08/10/2025 for labor delivery. Currently her SECOND OPERATOR shunt is nonfunctioning, and patient does not have any hydrocephalus with an MRI during her being normal. Her neurologist Dr. Darien Zurita had evaluated her during care. In the hospital, the patient's labor contractions were not adequate, and failed vacuum assisted vaginal delivery, and underwent C- section by Dr. Andrade today evening, and was plan to discharge home. However, she continued to have profuse vaginal bleeding due to uterine atonia. The patient was taken back to the OR, and required abdominal hysterectomy, left salpingo oophorectomy, and packaging of vaginal vault. During revision OR, patient lost about 2.5 L of blood. The patient denied any headache, nausea or vomiting, fever or chills, SOB, chest pain, any changes in bowel or bladder habit, or leg swelling. She denied orthopnea or PND, but admitted pain at the surgical site. During my evaluation, patient's blood pressure was 124/86, pulse 100, RR 14, saturating 98% on room air. Labs were significant for white count 18.3, hemoglobin 9.3, platelet 72, PT 13.4, INR 1.2, APTT 45.6, D-dimer 581, fibrinogen pending, chloride 116, bicarb 19.8, anion gap 8, BUN 5, creatinine 0.5, blood sugar 114, corrected calcium 9.2, magnesium 1.3, total protein 2.6, albumin 1.7, blood cultures pending. PMH: As mentioned above Surgical history: SECOND OPERATOR shunt during childhood Family history: Hypertension and breast cancer Social history: Denies alcohol, drug or smoking. Medications: vitamins, omeprazole Allergies: No known allergies The patient received total of 4 unit of PRBC, 2 unit of FFP, Zosyn 3.375 g x 1, and was upgraded to ICU for further management of possible DIC and severe hemorrhage. Interval History 08/12/25: Patient was examined at bedside; she reports having generalized abdominal pain as well as wooziness that occurs when she sits up in the bed. She denies any chest pain, shortness of breath, palpitations, or nausea/vomiting. Pertinent labs include Hgb 10.2, PT 11.4, INR 1.0, APTT 33.3, fibrinogen 288, and Tbili 1.5. Patient initially presented to the labor gross on 08/10 where it had been expected for her to undergo normal spontaneous vaginal delivery. However, patient's labor contractions were not adequate and vacuum-assisted vaginal delivery was trialed at that time but this also failed. Due to patient's inability to progress during the birthing process, she was taken to the OR where she underwent which was successful and patient was moved to the recovery room. While in the recovery room she developed hemorrhage refractory to uterotonics which resulted in her being taken back to the OR for emergent abdominal hysterectomy with left salpingo-oophorectomy in order to stop patient's acute blood loss. After returning to the recovery room for a second time, patient once again developed profuse vaginal bleeding and was carried back to the OR for a third time for surgical exploration after which hemostasis was again achieved. She received a total of 9 units of PRBC, 4 units FFP, and 1 unit cryoprecipitate. Patient is currently clinical stable and will be downgraded to the gross and the hospitalist team will be consulted to monitor patient's Hgb, coagulation panel, and electrolytes. Exam Vital Signs Temp Pulse Resp BP Pulse Ox O2 Del Method O2 Flow Rate 99.0 F 102 H 14 110/64 96 Room Air 5 08/12/25 07:00 08/12/25 09:00 08/12/25 09:00 08/12/25 09:00 08/12/25 09:00 08/12/25 09:00 08/11/25 22:50 Narrative Exam General: No acute distress, alert and oriented x 3 HEENT: Moist mucous membranes, oropharynx clear Neck: Supple, No masses, No JVD CVS: S1S2 Regular rate and rhythm, No murmurs, rubs or gallops Lungs: Clear to auscultation with no accessory use, no wheeze no rhonchi Abd: Soft, very tender to slight palpation in all quadrant, surgical site under clean dressing, +BS, no organomegaly Ext: No edema, warm and well perfused Skin: No rash Psych: Appropriate mood and affect Objective Labs 08/12/25 17:10 08/12/25 04:55 Labs: Laboratory Results - last 24 hr 08/10/25 08/11/25 08/11/25 23:55 20:21 21:22 WBC 15.1 H 18.3 H RBC 2.38 L 3.28 L Hgb 7.4 L D 9.3 L D Hct 21.7 L* D 27.4 L MCV 91 84 MCH 31.1 28.4 MCHC 34.1 33.9 RDW Std Deviation 45.1 64.0 H Plt Count 80 L D 72 L Neut % (Auto) 85 H 84 H Lymph % (Auto) 6 L 6 L [place] % (Auto) 9 8 Eos % (Auto) 0 0 Baso % (Auto) 0 0 Neut # (Auto) 12.8 H 15.5 H Lymph # (Auto) 0.9 L 1.2 [place] # (Auto) 1.3 H 1.5 H Eos # (Auto) 0.0 0.0 Baso # (Auto) 0.0 0.1 Immature Gran # (Auto) 0.12 H 0.13 H Absolute Nucleated RBC 0.00 0.00 Immature Gran % 1 H 1 H Nucleated RBC % 0 0 Smear Path Review PT 13.4 H INR 1.2 APTT 45.6 H Fibrinogen 244 D-Dimer 581 Puncture Site ABG pH ABG pCO2 ABG pO2 ABG HCO3 ABG O2 Saturation ABG Base Excess FiO2 Sodium 144 Potassium 3.8 Chloride 116 H Carbon Dioxide 19.8 L Anion Gap 8 BUN 5 L Creatinine 0.5 L Estim Creat Clear Calc 185.7 eGFR > 60 BUN/Creatinine Ratio 10 L Glucose 114 H Calculated Osmolality 285 Lactic Acid 1.8 Calcium 7.4 L Corrected Calcium 9.2 Phosphorus Magnesium 1.3 L Total Bilirubin 0.7 AST 12 ALT < 7 L Alkaline Phosphatase 50 Total Protein 2.6 L Albumin 1.7 L Globulin 0.9 L Albumin/Globulin Ratio 1.9 Misc Test Result Platelets confirmed Blood Type A Positive Antibody Screen NEGATIVE Crossmatch See Detail Blood Bank Wristband ID Yes Blood Bank Comment FFP Ready 08/11/25 08/12/25 21:23 04:55 WBC 14.9 H RBC 3.58 L Hgb 10.2 L Hct 29.7 L MCV 83 MCH 28.5 MCHC 34.3 RDW Std Deviation 63.7 H Plt Count 82 L Neut % (Auto) 79 Lymph % (Auto) 13 [place] % (Auto) 8 Eos % (Auto) 0 Baso % (Auto) 0 Neut # (Auto) 11.7 H Lymph # (Auto) 1.9 [place] # (Auto) 1.1 H Eos # (Auto) 0.0 Baso # (Auto) 0.0 Immature Gran # (Auto) 0.07 H Absolute Nucleated RBC 0.00 Immature Gran % 1 H Nucleated RBC % 0 Smear Path Review Sent to Pathologist PT 11.4 INR 1.0 APTT 33.3 D Fibrinogen 288 D-Dimer Puncture Site Arterial Line ABG pH 7.31 L ABG pCO2 39 ABG pO2 200 H ABG HCO3 20 ABG O2 Saturation 100 H ABG Base Excess -6 L FiO2 21 Sodium 140 Potassium 3.8 Chloride 110 H Carbon Dioxide 22.0 Anion Gap 8 BUN 5 L Creatinine 0.6 Estim Creat Clear Calc 156.1 eGFR > 60 BUN/Creatinine Ratio 8 L Glucose 104 Calculated Osmolality 276 Lactic Acid Calcium 7.1 L Corrected Calcium 8.5 Phosphorus 3.5 Magnesium 2.0 Total Bilirubin 1.5 H D AST 17 ALT < 7 L Alkaline Phosphatase 58 Total Protein 3.6 L Albumin 2.3 L D Globulin 1.3 L Albumin/Globulin Ratio 1.8 Misc Test Result Blood Type Antibody Screen Crossmatch Blood Bank Wristband ID Blood Bank Comment ABG Interpretation ABG results: 08/11/25 21:23 ABG pH 7.31 L ABG pCO2 39 ABG pO2 200 H ABG HCO3 20 ABG O2 Saturation 100 H ABG Base Excess -6 L Quality Measures Quality Measures VTE prophylaxis (SCD's) Assessment & Plan Assessment Current Active Medications: Generic Name Dose Route Start Last Admin Trade Name Freq PRN Reason Stop Dose Admin Al Hydrox/Mg Hydrox/Simethicone 30 ml 08/11/25 19:48 Mg Hyd/Al Hyd/Uziel (Maalox Reg) Susp 30 Ml Udc PO 09/10/25 19:47 Q4HR PRN Heartburn or Upset Stomach Benzocaine 1 spray 08/10/25 23:32 Benzo/Lano/Aloe (Dermoplast) 60 Gm Can TOP 09/09/25 23:31 PRN PRN PERINEAL DISCOMFORT Diphtheria/Tetanus/Acell Pertussis 0.5 ml 08/11/25 17:35 Diphth,Pertuss(Acell),Tet Vac 0.5 Ml Syr- Adult IMi X1 PRN SEE COMMENTS Docusate Sodium 100 mg 08/12/25 09:00 08/12/25 08:13 Docusate Sod 100 Mg Capsule PO 09/11/25 08:59 100 mg QDAY NAVEED Administration Hydromorphone HCl 1 mg 08/12/25 08:54 Hydromorphone Inj 2 Mg/Ml Vial IVP 08/17/25 07:52 Q4HR PRN PAIN SCALE 7-10 (Severe Protocol Lactated Ringer's 1,000 mls @ 100 mls/hr 08/10/25 23:45 08/12/25 02:28 Lactated Ringers IV 09/09/25 23:44 Not Given .Q10H NAVEED Lactated Ringer's 500 mls @ 999 mls/hr 08/10/25 23:32 Lactated Ringers IV 09/09/25 23:31 .Q31M PRN HR tracing (Per Policy) Tranexamic Acid 1,000 mg in 100 mls @ 200 mls/hr 08/10/25 23:32 Tranexamic Acid Ivpb IV PRNMRX1 PRN BLEEDING Promethazine HCl 25 mg/ Sodium 51 mls @ 153 mls/hr 08/11/25 17:46 Chloride IV 09/10/25 17:45 Q6HR PRN NAUSEA Magnesium Hydroxide 30 ml 08/11/25 17:35 Milk Of Magnesia Susp 30 Ml Udc PO 09/10/25 17:34 PRNMRX1 PRN CONSTIPATION Measles/Mumps/Rubella Vaccine Live 0.5 ml 08/11/25 17:35 Measles, Mumps & Rubella Vacc 0.5 Ml Vial SCi X1 PRN if non-immune or equivocal Methylergonovine Maleate 0.2 mg 08/11/25 17:35 Methylergonovine Inj 0.2 Mg/Ml Vial IM 08/18/25 17:34 Q6HR PRN Excessive bleeding Simethicone 80 mg 08/11/25 17:35 Simethicone 80 Mg Chew PO 09/10/25 17:34 Q4HR PRN GAS Plan The patient is a 29-year-old female with significant past medical history of indwelling ventriculoperitoneal shunt that was placed after an enterocele repair years ago at [facility] due to postsurgical hydrocephalus and GERD was admitted on 08/10/2025 for labor delivery. The patient received total of 4 unit of PRBC, 2 unit of FFP, Zosyn 3.375 g x 1, and was upgraded to ICU for further management of possible DIC and severe hemorrhage. Patient was examined at bedside; she reports having generalized abdominal pain as well as wooziness that occurs when she sits up in the bed. She denies any chest pain, shortness of breath, palpitations, or nausea/vomiting. Pertinent labs include Hgb 10.2, PT 11.4, INR 1.0, APTT 33.3, fibrinogen 288, and Tbili 1.5. Patient initially presented to the labor gross on 08/10 where it had been expected for her to undergo normal spontaneous vaginal delivery. However, patient's labor contractions were not adequate and vacuum-assisted vaginal delivery was trialed at that time but this also failed. Due to patient's inability to progress during the birthing process, she was taken to the OR where she underwent which was successful and patient was moved to the recovery room. While in the recovery room she developed hemorrhage refractory to uterotonics which resulted in her being taken back to the OR for emergent abdominal hysterectomy with left salpingo-oophorectomy in order to stop patient's acute blood loss. After returning to the recovery room for a second time, patient once again developed profuse vaginal bleeding and was carried back to the OR for a third time for surgical exploration after which hemostasis was again achieved. She received a total of 9 units of PRBC, 4 units FFP, and 1 unit cryoprecipitate. Patient is currently clinical stable and will be downgraded to the gross and the hospitalist team will be consulted to monitor patient's Hgb, coagulation panel, and electrolytes. Neuro: #History of SECOND OPERATOR shunt during childhood Currently her SECOND OPERATOR shunt is nonfunctioning, and patient does not have any hydrocephalus with an MRI during her being normal. Her neurologist Dr. Darien Zurita had evaluated her during care. - Monitor for any signs and symptoms of infection CVS: #Hemorrhagic shock Patient experienced significant hemorrhage s/p that was also refractory to uterotonics, losing over 2.5 L of blood Rx: -Patient is s/p 9 units pRBC, 4 units FFP, and 1 unit cryoprecipitate -Will continue to monitor for signs of active bleeding and transfuse if Hgb<7 RRx: -Patient does not seem to be bleeding anymore at this current time Pulmonology: - No acute issues GI: #Hypoalbuminemia #Hypoproteinemia Likely secondary to shift of liver function to produce more coagulation factor in the setting of possible underlying coagulation disorder as evidenced by elevated PT and APTT -Daily a.m. labs for CMP -Monitor closely #History of GERD Patient is on omeprazole at home. -May consider starting on pantoprazole Renal/: #Mild non-anion gap hyperchloremic metabolic acidosis pH 7.31, bicarb 19.8, pCO2 39 Likely secondary to hypoalbuminemia leading to decreased buffering capacity Lactic acid 1.8. -May consider albumin infusion if bicarb decreases further #Hypomagnesemia Mg 1.3 Repleted with MgSO4 4g -Daily am labs for Mg. FRAME CARVER SPINDLE: #S/p abdominal hysterectomy, left salpingo oophorectomy, and packaging of vaginal vault #S/p In the hospital, the patient's labor contractions were not adequate, and failed vacuum assisted vaginal delivery, and underwent by Dr. Andrade today evening, and was plan to discharge home. However, she continued to have profuse vaginal bleeding due to uterine atonia. The patient was taken back to the OR, and required . During revision OR, patient lost about 2.5 L of blood. -Dr. 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 - Cryoprecipitate was initially ordered, but later canceled - Ordered path review smear - Daily a.m. labs for CBC Endocrinology: - No active issues Infectious disease: #Asymptomatic bacteriuria in - Urine culture ordered - On Zosyn (1 time dose) also to prevent any SECOND OPERATOR shunt infection - Ordered blood and urine culture MSK: - No active issue Skin: - No active issue Dispo: clinically stable for downgrade to gross Diet: Regular diet Lines: Peripheral lines DVT prophylaxis: SCDs CODE STATUS: Full code The patient's management plan was discussed with my attending physician, Dr. Leesa Alamo, DO Internal Medicine, PGY-1 Attending Provider Attestation/Addendum I saw and examined patient personally and supervised PGY 1 resident, Dr. Alamo with formulating a management plan. I agree with the documentation with the exceptions as listed below. Problem list: Hemorrhagic shock secondary to hemorrhage due to uterine atony?resolved Day 1 post-op and hysterectomy with left salpingo-oophorectomy History of SECOND OPERATOR shunt Patient initially presented on 08/10 to the labor gross for proposed . She had 2 be taken to the OR for due to failure to progress, and the recovery room she developed PPH which was refractory to medical management and subsequently taken back to the OR. an abdominal hysterectomy with left salpingo-oophorectomy was performed and hemostasis was achieved after which patient was transferred back to recovery room. While in recovery room patient again developed profuse vaginal bleeding and was carried back to the OR for a third time for exploration after which hemostasis was again achieved. She received a total of 9 units PRBC, 4 units FFP and 1 unit cryoprecipitate. Initially PTT was elevated at 45.6 and now down trended to 33.3. Hemoglobin remained stable at 10.2, PLT 82 and fibrinogen 288. Patient denied any shortness of breath, chest pain or pressure and palpitations. There was no reported episodes of bleeding overnight and this morning was vaginal packing appears to be nonbloody as well. Her Seo was noted to be in situ with yellow urine in bag. At this point in time patient is clinically stable for downgrade to gross. Out of an abundance of caution we will consult hospitalist team to monitor electrolytes, hemoglobin and coagulation panel. Plan of care discussed with Attending Dr. Leesa Pantoja MD PGY 2 Disclaimer: This note was dictated by speech recognition. Minor errors in educational adviser may be present due to voice recognition software.
--- NOTE | 2025-08-12 10:49 | EKG_ITS ---
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
[2025-08-12] MEDS: HYDROmorphone 1 MG/ML PCA SYRINGE 30ML 30 MG IV (11:09)
--- NOTE | 2025-08-12 14:50 | ESPR_ITS ---
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 Labor complicated by failed vacuum-assisted vaginal delivery secondary to failed descent, requiring and afterwards continued to have profuse vaginal bleeding due to uterine atonia. She was brought back to the OR and underwent abdominal hysterectomy and left salpingo-oophorectomy, requiring 9 units PRBC. She was also transfused 4 units FFP, 1 unit of platelets, and cryoprecipitate. Afterwards she was transferred to the ICU for close monitoring and eventually downgraded back to SUPERVISOR PHOSPHATIC FERTILIZER services with general medicine team consulted for continued monitoring. Repeat CBC showed drop in hemoglobin from 10 to 9 and will order 1 unit PRBC and follow-up posttransfusion H&H and asked nursing staff to administer tranexamic acid. Per SUPERVISOR PHOSPHATIC FERTILIZER, will continue Zosyn until discharge. ----- Note reviewed and agree with care plan as documented. Please refer to the note below for further details. Plan discussed with attending physician Dr. Dianne iGmenez MD PGY-2 Internal Medicine Documentation for date of: 08/12/25 Subjective Subjective Interval history: The patient is a 29-year-old female with significant past medical history of indwelling ventriculoperitoneal shunt that was placed after an enterocele repair years ago at [facility] due to postsurgical hydrocephalus and GERD was admitted on 08/10/2025 for labor delivery. In the hospital, the patient's labor contractions were not adequate, and failed vacuum assisted vaginal delivery, and underwent . Post she continued to have profuse vaginal bleeding due to uterine atonia. The patient was taken back to the OR, and required abdominal hysterectomy, left salpingo oophorectomy, and packaging of vaginal vault. During revision OR, patient lost about 2.5 L of blood. Patient was admitted to ICU for acute blood loss anemia secondary to vaginal bleeding. On 08/12/2025 patient is being downgraded and internal medicine team is consulted for continued management. 08/12/25: Patient was seen at bedside today afternoon. Her and sister were also present in room. Patient was laying in the bed, in mild distress due to all of the recent events. She noted diffuse weakness and pain at the surgical site. Patient also complained of itchiness, most prominantly on the back and expressed concerns regarding cholestasis. Patient is looking forward to going back to the OB floor so she can be with her new born. Exam Vital Signs Temp Pulse Resp BP Pulse Ox O2 Del Method O2 Flow Rate 98.5 F 103 H 21 H 124/75 99 Room Air 5 08/12/25 14:08/12/25 14:08/12/25 14:08/12/25 14:08/12/25 14:08/12/25 09:08/11/25 22:50 Narrative Exam Gen: Alert, no acute distress. Pleasantly conversational and non-toxic appearing. Skin: Poor skin turgor, no rash, ecchymoses, and no signs of cyanosis. HEENT: Normocephalic, atraumatic.? Normal conjunctiva, PERRL. Dry oral mucosa. No obvious lesions in oropharynx. Cardiovascular: Regular rate and rhythm, no murmur, +S1/S2. Respiratory: Lungs are clear to auscultation, respirations unlabored, no crackles, no wheezing. Gastrointestinal: Soft, nontender, non-distended. No guarding or rebound tenderness. Extremities: No edema, no cyanosis, no clubbing. Neuro: Alert and oriented x3.No focal deficits observed. Conversant, moving all extremities. No motor or sensory deficits in bilateral upper or lower extremities. No overt cerebellar signs/incoordination. Psychiatric: Cooperative, appropriate affect Objective Labs 08/13/25 04:50 08/12/25 04:55 Labs: Laboratory Results - last 24 hr 08/10/25 08/11/25 08/11/25 23:55 20:21 21:22 WBC 15.1 H 18.3 H RBC 2.38 L 3.28 L Hgb 7.4 L D 9.3 L D Hct 21.7 L* D 27.4 L MCV 91 84 MCH 31.1 28.4 MCHC 34.1 33.9 RDW Std Deviation 45.1 64.0 H Plt Count 80 L D 72 L Neut % (Auto) 85 H 84 H Lymph % (Auto) 6 L 6 L Hopkins % (Auto) 9 8 Eos % (Auto) 0 0 Baso % (Auto) 0 0 Neut # (Auto) 12.8 H 15.5 H Lymph # (Auto) 0.9 L 1.2 Hopkins # (Auto) 1.3 H 1.5 H Eos # (Auto) 0.0 0.0 Baso # (Auto) 0.0 0.1 Immature Gran # (Auto) 0.12 H 0.13 H Absolute Nucleated RBC 0.00 0.00 Immature Gran % 1 H 1 H Nucleated RBC % 0 0 Smear Path Review PT 13.4 H INR 1.2 APTT 45.6 H Fibrinogen 244 D-Dimer 581 Puncture Site ABG pH ABG pCO2 ABG pO2 ABG HCO3 ABG O2 Saturation ABG Base Excess FiO2 Sodium 144 Potassium 3.8 Chloride 116 H Carbon Dioxide 19.8 L Anion Gap 8 BUN 5 L Creatinine 0.5 L Estim Creat Clear Calc 185.7 eGFR > 60 BUN/Creatinine Ratio 10 L Glucose 114 H Calculated Osmolality 285 Lactic Acid 1.8 Calcium 7.4 L Corrected Calcium 9.2 Phosphorus Magnesium 1.3 L Total Bilirubin 0.7 AST 12 ALT < 7 L Alkaline Phosphatase 50 Total Protein 2.6 L Albumin 1.7 L Globulin 0.9 L Albumin/Globulin Ratio 1.9 Misc Test Result Platelets confirmed Blood Type A Positive Antibody Screen NEGATIVE Crossmatch See Detail Blood Bank Wristband ID Yes Blood Bank Comment PLATP Ready 08/11/25 08/12/25 21:23 04:55 WBC 14.9 H RBC 3.58 L Hgb 10.2 L Hct 29.7 L MCV 83 MCH 28.5 MCHC 34.3 RDW Std Deviation 63.7 H Plt Count 82 L Neut % (Auto) 79 Lymph % (Auto) 13 Hopkins % (Auto) 8 Eos % (Auto) 0 Baso % (Auto) 0 Neut # (Auto) 11.7 H Lymph # (Auto) 1.9 Hopkins # (Auto) 1.1 H Eos # (Auto) 0.0 Baso # (Auto) 0.0 Immature Gran # (Auto) 0.07 H Absolute Nucleated RBC 0.00 Immature Gran % 1 H Nucleated RBC % 0 Smear Path Review Sent to Pathologist PT 11.4 INR 1.0 APTT 33.3 D Fibrinogen 288 D-Dimer Puncture Site Arterial Line ABG pH 7.31 L ABG pCO2 39 ABG pO2 200 H ABG HCO3 20 ABG O2 Saturation 100 H ABG Base Excess -6 L FiO2 21 Sodium 140 Potassium 3.8 Chloride 110 H Carbon Dioxide 22.0 Anion Gap 8 BUN 5 L Creatinine 0.6 Estim Creat Clear Calc 156.1 eGFR > 60 BUN/Creatinine Ratio 8 L Glucose 104 Calculated Osmolality 276 Lactic Acid Calcium 7.1 L Corrected Calcium 8.5 Phosphorus 3.5 Magnesium 2.0 Total Bilirubin 1.5 H D AST 17 ALT < 7 L Alkaline Phosphatase 58 Total Protein 3.6 L Albumin 2.3 L D Globulin 1.3 L Albumin/Globulin Ratio 1.8 Misc Test Result Blood Type Antibody Screen Crossmatch Blood Bank Wristband ID Blood Bank Comment ABG Interpretation ABG results: 08/11/25 21:23 ABG pH 7.31 L ABG pCO2 39 ABG pO2 200 H ABG HCO3 20 ABG O2 Saturation 100 H ABG Base Excess -6 L Quality Measures Quality Measures VTE prophylaxis (SCD's) Assessment & Plan Assessment Current Active Medications: Generic Name Dose Route Start Last Admin Trade Name Freq PRN Reason Stop Dose Admin Al Hydrox/Mg Hydrox/Simethicone 30 ml 08/11/25 19:48 Mg Hyd/Al Hyd/Uziel (Maalox Reg) Susp 30 Ml Udc PO 09/10/25 19:47 Q4HR PRN Heartburn or Upset Stomach Benzocaine 1 spray 08/10/25 23:32 Benzo/Lano/Aloe (Dermoplast) 60 Gm Can TOP 09/09/25 23:31 PRN PRN PERINEAL DISCOMFORT Diphtheria/Tetanus/Acell Pertussis 0.5 ml 08/11/25 17:35 Diphth,Pertuss(Acell),Tet Vac 0.5 Ml Syr- Adult IMi X1 PRN SEE COMMENTS Docusate Sodium 100 mg 08/12/25 09:00 08/12/25 08:13 Docusate Sod 100 Mg Capsule PO 09/11/25 08:59 100 mg QDAY NAVEED Administration Hydromorphone HCl 1 mg 08/12/25 08:54 Hydromorphone Inj 2 Mg/Ml Vial IVP 08/17/25 07:52 Q4HR PRN PAIN SCALE 7-10 (Severe Protocol Hydromorphone HCl 30 mg 08/12/25 10:15 08/12/25 11:09 Hydromorphone 1 Mg/Ml Workday Consultant Syringe 30ml IV 08/17/25 10:14 30 mg PER ORDER PRN Administration Per Protocol (Pain) Protocol Lactated Ringer's 1,000 mls @ 100 mls/hr 08/10/25 23:45 08/12/25 02:28 Lactated Ringers IV 09/09/25 23:44 Not Given .Q10H [facility] Lactated Ringer's 500 mls @ 999 mls/hr 08/10/25 23:32 Lactated Ringers IV 09/09/25 23:31 .Q31M PRN HR tracing (Per Policy) Tranexamic Acid 1,000 mg in 100 mls @ 200 mls/hr 08/10/25 23:32 Tranexamic Acid Ivpb IV [id number] PRN BLEEDING Promethazine HCl 25 mg/ Sodium 51 mls @ 153 mls/hr 08/11/25 17:46 Chloride IV 09/10/25 17:45 Q6HR PRN NAUSEA Piperacillin/Tazobactam/Dextrose 3.375 gm in 50 mls @ 12.5 mls/hr 08/12/25 14:00 Zosyn IV 08/19/25 13:59 Q8HR [facility] Protocol Magnesium Hydroxide 30 ml 08/11/25 17:35 Milk Of Magnesia Susp 30 Ml Udc PO 09/10/25 17:34 [id number] PRN CONSTIPATION Measles/Mumps/Rubella Vaccine Live 0.5 ml 08/11/25 17:35 Measles, Mumps & Rubella Vacc 0.5 Ml Vial SCi X1 PRN if non-immune or equivocal Methylergonovine Maleate 0.2 mg 08/11/25 17:35 Methylergonovine Inj 0.2 Mg/Ml Vial IM 08/18/25 17:34 Q6HR PRN Excessive bleeding Simethicone 80 mg 08/11/25 17:35 Simethicone 80 Mg Chew PO 09/10/25 17:34 Q4HR PRN GAS Plan 29-year-old female with significant past medical history of indwelling ventriculoperitoneal shunt that was placed after an enterocele repair years ago at [facility] due to postsurgical hydrocephalus and GERD was admitted on 08/10/2025 for labor delivery. s/p and hysterectomy and left salpingo oophorectomy. The patient received total of 4 unit of PRBC, 2 unit of FFP, Zosyn 3.375 g x 1, and was upgraded to ICU for further management of possible DIC and severe hemorrhage. 08/12/25 patient is stable and being transferred back to the OB floor with internal medicine consult in place. #Acute blood loss anemia secondary do bleeding DDx: DIC versus coagulation factor deficiencies Patient is s/p and hysterectomy and left salpingo oophorectomy. The patient received total of 4 unit of PRBC, 2 unit of FFP - Continue to monitor H and H - Transfuse if Hgb drops below 7. - Will consider IV iron if WBC normalizes and no suspicion for infection. - B12 1000 mcg x1 - Folic Acid 1 mg BID #S/p abdominal hysterectomy, left salpingo oophorectomy, and packaging of vaginal vault #S/p In the hospital, the patient's labor contractions were not adequate, and failed vacuum assisted vaginal delivery, and underwent by Dr. Andrade today evening, and was plan to discharge home. However, she continued to have profuse vaginal bleeding due to uterine atonia. The patient was taken back to the OR, and required . During revision OR, patient lost about 2.5 L of blood. -Dr. Andrade on board -Monitor closely - Lidocaine 5% patch for surgical site pain. #Hypoalbuminemia #Hypoproteinemia Likely secondary to shift of liver function to produce more coagulation factor in the setting of possible underlying coagulation disorder as evidenced by elevated PT and APTT -Daily a.m. labs for CMP -Gave Albumin 25g x1 -Monitor closely #Hypomagnesemia Now stable at 2.0 last reading at 1.3 Repleted with MgSO4 4g -Daily am labs for Mg. #Itching/skin irritation Patient complains of itchiness on the back. No signs of rashes or cosme. - Loratadine 10 mg x1 PO #History of SHEAR ASSEMBLER shunt during childhood Currently her SHEAR ASSEMBLER shunt is nonfunctioning, and patient does not have any hydrocephalus with an MRI during her being normal. Her neurologist Dr. Darien Zurita had evaluated her during care. - Monitor for any signs and symptoms of infection - On empiric Zosyn Health Maintenance: Code Status: Full DVT Prophylaxis: SCDs, ambulation GI Prophylaxis: Protonix Diet: Regular diet, ensure protein Seo: Seo in place Lines: PIV Supplemental O2: 97 NC 5L Disposition: SUPERVISOR PHOSPHATIC FERTILIZER, IM on consult, d/c post surgical recovery and stabilization. Patient seen and care discussed with my attending physician, Dr. Mosquera and my senior residents, Dr. Gould and Dr. Lan Roland, [facility] Attending Provider Attestation/Addendum IRashmi DO, attest that I was physically present for the morrow portions of the service and evaluated the patient with the resident and I reviewed and discussed the case with the resident and agree with the resident's findings and plans of care as documented above Patient is a 29-year-old G1, P1 female with past medical history of GERD and SHEAR ASSEMBLER shunt secondary to postsurgical hydrocephalus who presented to labor and delivery on 08/10/2025 with contractions at 39 weeks and 5 days. Patient underwent on on 08/11/2025. Patient experienced profuse vaginal bleeding due to her uterine atony later that evening that was not responding to uterotonics. She was brought to the OR during which she underwent an abdominal hysterectomy and left salpingo-oophorectomy. Patient was subsequently admitted to the ICU due to acute blood loss anemia and for closer monitoring. Patient had received 4 units of PRBCs, 2 units of FFP and started on Zosyn due to endometritis prior to transfer to ICU. Patient has been since closely monitored and received another 5 units of PRBCs, 2 units of FFP and 1 unit of cryoprecipitate. Vaginal packing was removed today during which no active bleeding was noted. Patient currently reporting some discomfort in her throat due to intubation. She is also currently on a [employer] pump due to uncontrolled pain. Patient has little appetite as well. Patient has been stable and downgraded back to gross. Hospital service was consulted for continued monitoring. It is recommended by SUPERVISOR PHOSPHATIC FERTILIZER to keep hemoglobin greater than 10. She remains somewhat tachycardic at this time, but normotensive. Will continue with IV fluids at this time as patient has poor p.o. intake. Encourage patient to use incentive spirometer. Continue with pain control as needed. Repeat hemoglobin at 5 PM shows hemoglobin of 9.0. Will transfuse 1 unit of PRBCs as well. Hospitalist service will continue to follow closely.
[2025-08-12] MEDS: RINGERS LACTATED 1000 ML 1,000 ML 100 ML IV ×2 (15:08→16:36)
[2025-08-12] MEDS: ALBUMIN HUMAN 25% IVPB 25 GM/100 ML BTL IV (15:25)
[2025-08-12] MEDS: ACETAMINOPHEN IVPB 1,000 MG/100 ML VIAL 250 MG IV ×2 (16:40→22:46)
[2025-08-12 17:34] LABS: INR 1.0 (0.9-1.3); Partial Thromboplastin Time 30.6 Seconds (22.0-36.0); Prothrombin Time 10.6 Seconds (9.0-12.2)
[2025-08-12 17:59] LABS: Basophils # (Auto) 0.0 Thou/mm3 (0.0-0.2); Basophils % (Auto) 0 % (0-2.5); Eosinophils # (Auto) 0.0 Thou/mm3 (0.0-0.5); Eosinophils % (Auto) 0 % (0-10); Hematocrit 25.9 % (36.0-46.0); Hemoglobin 9.0 g/dL (12.0-16.0); Immature Granulocytes Auto 0.07 Thou/mm3 (0.00-0.00); Lymphocytes # (Auto) 0.9 Thou/mm3 (1.0-4.8); Lymphocytes % (Auto) 8 % (10-50); Mean Corpuscular HGB Conc 34.7 g/dl (31.0-37.0); Mean Corpuscular Hemoglobin 28.4 pg (25.0-35.0); Mean Corpuscular Volume 82 fL (80-100); Monocytes # (Auto) 0.5 Thou/mm3 (0.0-0.8); Monocytes % (Auto) 4 % (0-12); Neutrophils # (Auto) 9.9 Thou/mm3 (1.8-7.7); Neutrophils % (Auto) 87 % (37-80); Nucleated Red Blood Cell # 0.00 Thou/mm3 (0.00-0.00); Nucleated Red Blood Cell % 0 /100 WBC (0); Platelet Count 127 Thou/mm3 (140-440); RDW Standard Deviation 65.0 fL (36.4-46.3); Red Blood Count 3.17 Miln/mm3 (4.00-5.20); White Blood Count 11.4 Thou/mm3 (3.6-11.0)
[2025-08-12] MEDS: SIMETHICONE 80 MG CHEW PO ×2 (18:28→22:53)
--- NOTE | 2025-08-12 19:21 | PC.NURSE ---
1640: D.O bedside to remove vaginal packing. Pt began crying and explained process. offered to remove Vaginal packing in the AM on 08/12/25. Pt agreed. ordered 10mg of Ambien PRN HS. IV fluids TKO.
--- NOTE | 2025-08-12 19:24 | PC.NURSE ---
1722: ICU residents bedside.
--- NOTE | 2025-08-12 19:26 | PC.NURSE ---
1834: ICU resident Luan called to order 1UPRBC and TXA.
[2025-08-12] MEDS: FOLIC ACID INJ 1 MG/0.2 ML IVP (20:20)
[2025-08-12] MEDS: LIDOCAINE 5% 1 PATCH TOP (20:26)
[2025-08-12 22:46] LABS: Hematocrit 30.2 % (36.0-46.0); Hemoglobin 10.3 g/dL (12.0-16.0)
[2025-08-12] MEDS: TRANEXAMIC ACID 1,000 MG IVPB 1,000 MG/100 ML BAG 200 MG IV (22:46)
[2025-08-12] MEDS: Milk Of Magnesia Susp 30 ML UDC PO (22:53)
[2025-08-13] VITALS: BP 101/68; PULSE 92; RESP 18; TEMP 37.1; O2SAT 95
[2025-08-13] MEDS: PIPER/TAZO 3.375 GM PREMIX 3.375 GM/50 ML BAG IV ×3 (02:00→18:18)
[2025-08-13] MEDS: ZOLPIDEM 5 MG TABLET 10 MG PO (02:17)
[2025-08-13 04:05] VITALS: BP 123/82; PULSE 93; RESP 17; TEMP 36.7; O2SAT 95
[2025-08-13] MEDS: ACETAMINOPHEN IVPB 1,000 MG/100 ML VIAL 250 MG IV (04:34)
[2025-08-13 05:51] LABS: Basophils # (Auto) 0.1 Thou/mm3 (0.0-0.2); Basophils % (Auto) 0 % (0-2.5); Eosinophils # (Auto) 0.2 Thou/mm3 (0.0-0.5); Eosinophils % (Auto) 1 % (0-10); Hematocrit 30.3 % (36.0-46.0); Hemoglobin 10.7 g/dL (12.0-16.0); Immature Granulocytes Auto 0.13 Thou/mm3 (0.00-0.00); Lymphocytes # (Auto) 0.8 Thou/mm3 (1.0-4.8); Lymphocytes % (Auto) 5 % (10-50); Mean Corpuscular HGB Conc 35.3 g/dl (31.0-37.0); Mean Corpuscular Hemoglobin 28.8 pg (25.0-35.0); Mean Corpuscular Volume 82 fL (80-100); Monocytes # (Auto) 0.9 Thou/mm3 (0.0-0.8); Monocytes % (Auto) 6 % (0-12); Neutrophils # (Auto) 12.9 Thou/mm3 (1.8-7.7); Neutrophils % (Auto) 86 % (37-80); Nucleated Red Blood Cell # 0.00 Thou/mm3 (0.00-0.00); Nucleated Red Blood Cell % 0 /100 WBC (0); Platelet Count 122 Thou/mm3 (140-440); RDW Standard Deviation 60.7 fL (36.4-46.3); Red Blood Count 3.72 Miln/mm3 (4.00-5.20); White Blood Count 14.9 Thou/mm3 (3.6-11.0)
[2025-08-13 05:54] LABS: Fibrinogen 553 mg/dL (175-375)
[2025-08-13 06:17] LABS: Magnesium 1.9 mg/dL (1.6-2.6); Phosphorous 3.1 mg/dL (2.4-5.1)
--- NOTE | 2025-08-13 07:34 | ESPR_ITS ---
Subjective Subjective Interval history: Patient complains of nausea without vomiting, gas pains and feeling like she has to have a bowel movement. Urine output adequate with Seo catheter in place. Denies passing flatus. On regular diet. She denies any chest pain, palpitations, cough, shortness of breath, flank pain or lower extremity pain. Exam Vital Signs Temp Pulse Resp BP Pulse Ox O2 Del Method O2 Flow Rate 98.0 F 93 17 123/82 95 Room Air 5 08/13/25 04:05 08/13/25 04:05 08/13/25 04:05 08/13/25 04:05 08/13/25 04:05 08/13/25 04:05 08/11/25 22:50 Routine Respiratory Exam Comments: Clear to auscultation bilaterally Routine Cardiovascular Exam Comments: Regular rate and rhythm Routine Abdominal Exam Comments: Gaseous distention. Incisional tenderness. Incision clear and intact Routine Extremities Exam Comments: Nontender Objective Labs 08/13/25 04:50 08/12/25 04:55 Labs: Laboratory Results - last 24 hr 08/10/25 08/12/25 08/12/25 23:55 04:55 17:10 WBC 11.4 H RBC 3.17 L Hgb 9.0 L Hct 25.9 L MCV 82 MCH 28.4 MCHC 34.7 RDW Std Deviation 65.0 H Plt Count 127 L D Neut % (Auto) 87 H Lymph % (Auto) 8 L Wilkinson % (Auto) 4 Eos % (Auto) 0 Baso % (Auto) 0 Neut # (Auto) 9.9 H Lymph # (Auto) 0.9 L Wilkinson # (Auto) 0.5 Eos # (Auto) 0.0 Baso # (Auto) 0.0 Immature Gran # (Auto) 0.07 H Absolute Nucleated RBC 0.00 Immature Gran % 1 H Nucleated RBC % 0 PT 11.4 10.6 INR 1.0 1.0 APTT 33.3 D 30.6 Fibrinogen Sodium Potassium Chloride Carbon Dioxide Anion Gap BUN Creatinine Estim Creat Clear Calc eGFR BUN/Creatinine Ratio Glucose Calculated Osmolality Calcium Corrected Calcium Phosphorus Magnesium Total Bilirubin AST ALT Alkaline Phosphatase Total Protein Albumin Globulin Albumin/Globulin Ratio Blood Type A Positive Antibody Screen NEGATIVE Crossmatch See Detail Blood Bank Wristband ID Yes Blood Bank Comment PLATP Ready 08/12/25 08/13/25 22:25 04:50 WBC 14.9 H RBC 3.72 L Hgb 10.3 L 10.7 L Hct 30.2 L 30.3 L MCV 82 MCH 28.8 MCHC 35.3 RDW Std Deviation 60.7 H Plt Count 122 L Neut % (Auto) 86 H Lymph % (Auto) 5 L Wilkinson % (Auto) 6 Eos % (Auto) 1 Baso % (Auto) 0 Neut # (Auto) 12.9 H Lymph # (Auto) 0.8 L Wilkinson # (Auto) 0.9 H Eos # (Auto) 0.2 Baso # (Auto) 0.1 Immature Gran # (Auto) 0.13 H Absolute Nucleated RBC 0.00 Immature Gran % 1 H Nucleated RBC % 0 PT INR APTT Fibrinogen 553 H Sodium Cancelled Potassium Cancelled Chloride Cancelled Carbon Dioxide Cancelled Anion Gap Cancelled BUN Cancelled Creatinine Cancelled Estim Creat Clear Calc Cancelled eGFR Cancelled BUN/Creatinine Ratio Cancelled Glucose Cancelled Calculated Osmolality Cancelled Calcium Cancelled Corrected Calcium Cancelled Phosphorus 3.1 Magnesium 1.9 Total Bilirubin Cancelled AST Cancelled ALT Cancelled Alkaline Phosphatase Cancelled Total Protein Cancelled Albumin Cancelled Globulin Cancelled Albumin/Globulin Ratio Cancelled Blood Type Antibody Screen Crossmatch Blood Bank Wristband ID Blood Bank Comment Impressions Impression: Postop day #2 status post delivery Postop day #2 status post total abdominal hysterectomy left salpingo- oophorectomy for unresolved uterine atony after administration of uterotonic's and failed Bakri balloon Endometritis Hemodynamically stable H&H stable Coagulopathy resolved Vaginal packing removed: No vaginal bleeding seen DC RN HYPERBARIC Oral opioid analgesia Dilaudid IV for severe breakthrough pain Monitor for GI motility at risk for ileus Continue IV antibiotics until discharge Encourage ambulation with assistance only ABG Interpretation ABG results: 08/11/25 21:23 ABG pH 7.31 L ABG pCO2 39 ABG pO2 200 H ABG HCO3 20 ABG O2 Saturation 100 H ABG Base Excess -6 L Assessment & Plan Time Spent With Patient Time: Total time spent is greater than 50% in coordination of care (as documented) at patient's floor/unit and/or counseling patient:
[2025-08-13 08:20] VITALS: BP 133/86; PULSE 89; RESP 17; RESP 19; TEMP 37; O2SAT 97
--- NOTE | 2025-08-13 09:03 | PC.SS ---
RUBBER WORKER conducted bedside contact with the patient conduct initial assessment and to discuss discharge planning.? Patient confirmed demographic information.? Patient resides at home with partner, Luís Nixon .? Patient does not utilize any form of DME to assist with ambulation.? Patient does not utilize home oxygen.? Patient describes the ability to complete ADL?s independently.? Patient identified FOB, Luís Nixon; as medical surrogate decision maker.? Patient?s PCP is Dr. Roberts.? Patient does not participate with dialysis.? Patient utilizes [facility] for medication services.? Plan is for the patient to return home at the time of discharge.? Family will provide transportation on behalf of the patient.? No further discharge needs identified by the patient.? No further intervention required at this time, social contact worker will be available to address any further concerns.? Next of Kin: Luís Nixon D/C Plan: Home
[2025-08-13] MEDS: DOCUSATE SOD 100 MG CAPSULE PO (10:11)
[2025-08-13 12:00] VITALS: BP 110/75; PULSE 96; RESP 18; TEMP 36.8; O2SAT 96
--- NOTE | 2025-08-13 13:01 | ESPR_ITS ---
<Statement entered by Ky Gimenez MD - 08/13/25 13:13> No acute overnight events. Seen and examined at bedside and patient emotional given circumstances s/p her procedures. Repeat CBCs showed improved hemoglobin from 9-10 have been stable since. SIDE SEAM ENVELOPE MACHINE OPERATOR saw patient and packing was without vaginal bleeding. OFFSET PRINTING OPERATOR was discontinued and transition to oral opioids for pain control with IV Dilaudid for breakthrough pain. She has been afebrile since yesterday afternoon, other vital signs stable, and slight increase in leukocytosis that is likely reactionary after her procedures. Will continue to monitor ----- Note reviewed and agree with care plan as documented. Please refer to the note below for further details. Plan discussed with attending physician Dr. Dianne Gimenez MD PGY-2 Internal Medicine Documentation for date of: 08/13/25 Subjective Subjective Interval history: The patient is a 29-year-old female with significant past medical history of indwelling ventriculoperitoneal shunt that was placed after an enterocele repair years ago at [facility] due to postsurgical hydrocephalus and GERD was admitted on 08/10/2025 for labor delivery. In the hospital, the patient's labor contractions were not adequate, and failed vacuum assisted vaginal delivery, and underwent . Post she continued to have profuse vaginal bleeding due to uterine atonia. The patient was taken back to the OR, and required abdominal hysterectomy, left salpingo oophorectomy, and packaging of vaginal vault. During revision OR, patient lost about 2.5 L of blood. Patient was admitted to ICU for acute blood loss anemia secondary to vaginal bleeding. On 08/12/2025 patient is being downgraded and internal medicine team is consulted for continued management. 08/12/25: Patient was seen at bedside today afternoon. Her and sister were also present in room. Patient was laying in the bed, in mild distress due to all of the recent events. She noted diffuse weakness and pain at the surgical site. Patient also complained of itchiness, most prominently on the back and expressed concerns regarding cholestasis. Patient is looking forward to going back to the OB floor so she can be with her new born. 08/13/25: No overnight events. Patient was seen at bedside today morning. Patients , new born baby, and another family member was present in the room. Overall patient was alert, oriented, and conversational. Patient was sitting at the edge of the bed and the nurse was holding onto het making sure she doesnt fall. As sitting at the edge she complained of dizziness and lightheadednes. Patient reports unchanged pain at the abdominal surgical site. She still reports itching on the back. Vaginal packing has been removed by OB, H and H is stable, WBC increased (likley reactive). Exam Vital Signs Temp Pulse Resp BP Pulse Ox O2 Del Method O2 Flow Rate 98.6 F 89 19 133/86 H 97 Room Air 5 08/13/25 08:20 08/13/25 08:20 08/13/25 08:20 08/13/25 08:20 08/13/25 08:20 08/13/25 08:20 08/11/25 22:50 Narrative Exam Gen: Alert, oriented. Mild distress due to pain, and unexpected recent events and complications. Conversational and non-toxic appearing. Skin: Normal skin turgor, no rash, ecchymoses, and no signs of cyanosis. S urgical site covered, no signs of active bleeding. HEENT: Normocephalic, atraumatic.? Normal conjunctiva, PERRL. Normal oral mucosa. No obvious lesions in oropharynx. Cardiovascular: Regular rate and rhythm, no murmur, +S1/S2. Respiratory: Lungs are clear to auscultation, respirations unlabored, no crackles, no wheezing. Gastrointestinal: Diffuse tenderness at the surgical site, no palpation performed brayan to pain. Increased bowel sounds. Patient has not had a bowel movement in past few days. Extremities: 2+ peripheral edema in bilateral lower extremities upto knee. 1+ peripheral edema in bilateral upper extremities. No signs of cyanosis, color changes, intact and equal peripheral pulses. Neuro: Alert and oriented x3.No focal deficits observed. Conversant, moving all extremities. No motor or sensory deficits in bilateral upper or lower extremities. No overt cerebellar signs/incoordination. Psychiatric: Cooperative, appropriate affect in consideration with significant recent events. Objective Labs 08/14/25 06:40 08/14/25 06:40 Labs: Laboratory Results - last 24 hr 08/10/25 08/12/25 08/12/25 23:55 17:10 22:25 WBC 11.4 H RBC 3.17 L Hgb 9.0 L 10.3 L Hct 25.9 L 30.2 L MCV 82 MCH 28.4 MCHC 34.7 RDW Std Deviation 65.0 H Plt Count 127 L D Neut % (Auto) 87 H Lymph % (Auto) 8 L [place] % (Auto) 4 Eos % (Auto) 0 Baso % (Auto) 0 Neut # (Auto) 9.9 H Lymph # (Auto) 0.9 L [place] # (Auto) 0.5 Eos # (Auto) 0.0 Baso # (Auto) 0.0 Immature Gran # (Auto) 0.07 H Absolute Nucleated RBC 0.00 Immature Gran % 1 H Nucleated RBC % 0 PT 10.6 INR 1.0 APTT 30.6 Fibrinogen Sodium Potassium Chloride Carbon Dioxide Anion Gap BUN Creatinine Estim Creat Clear Calc eGFR BUN/Creatinine Ratio Glucose Calculated Osmolality Calcium Corrected Calcium Phosphorus Magnesium Total Bilirubin AST ALT Alkaline Phosphatase Total Protein Albumin Globulin Albumin/Globulin Ratio Blood Type A Positive Antibody Screen NEGATIVE Crossmatch See Detail Blood Bank Wristband ID Yes Blood Bank Comment PLATP Ready 08/13/25 04:50 WBC 14.9 H RBC 3.72 L Hgb 10.7 L Hct 30.3 L MCV 82 MCH 28.8 MCHC 35.3 RDW Std Deviation 60.7 H Plt Count 122 L Neut % (Auto) 86 H Lymph % (Auto) 5 L [place] % (Auto) 6 Eos % (Auto) 1 Baso % (Auto) 0 Neut # (Auto) 12.9 H Lymph # (Auto) 0.8 L [place] # (Auto) 0.9 H Eos # (Auto) 0.2 Baso # (Auto) 0.1 Immature Gran # (Auto) 0.13 H Absolute Nucleated RBC 0.00 Immature Gran % 1 H Nucleated RBC % 0 PT INR APTT Fibrinogen 553 H Sodium Cancelled Potassium Cancelled Chloride Cancelled Carbon Dioxide Cancelled Anion Gap Cancelled BUN Cancelled Creatinine Cancelled Estim Creat Clear Calc Cancelled eGFR Cancelled BUN/Creatinine Ratio Cancelled Glucose Cancelled Calculated Osmolality Cancelled Calcium Cancelled Corrected Calcium Cancelled Phosphorus 3.1 Magnesium 1.9 Total Bilirubin Cancelled AST Cancelled ALT Cancelled Alkaline Phosphatase Cancelled Total Protein Cancelled Albumin Cancelled Globulin Cancelled Albumin/Globulin Ratio Cancelled Blood Type Antibody Screen Crossmatch Blood Bank Wristband ID Blood Bank Comment ABG Interpretation ABG results: 08/11/25 21:23 ABG pH 7.31 L ABG pCO2 39 ABG pO2 200 H ABG HCO3 20 ABG O2 Saturation 100 H ABG Base Excess -6 L Quality Measures Quality Measures VTE prophylaxis (SCD's) Assessment & Plan Assessment Current Active Medications: Generic Name Dose Route Start Last Admin Trade Name Freq PRN Reason Stop Dose Admin Hydrocodone Bitart/Acetaminophen 1 tab 08/13/25 07:13 08/13/25 10:11 Hydrocodone/Apap 10/325 Tab PO 08/18/25 07:12 1 tab Q4HR PRN Administration PAIN SCALE 4-10(Mod-Sev Al Hydrox/Mg Hydrox/Simethicone 30 ml 08/11/25 19:48 Mg Hyd/Al Hyd/Uziel (Maalox Reg) Susp 30 Ml Udc PO 09/10/25 19:47 Q4HR PRN Heartburn or Upset Stomach Benzocaine 1 spray 08/10/25 23:32 Benzo/Lano/Aloe (Dermoplast) 60 Gm Can TOP 09/09/25 23:31 PRN PRN PERINEAL DISCOMFORT Diphtheria/Tetanus/Acell Pertussis 0.5 ml 08/11/25 17:35 Diphth,Pertuss(Acell),Tet Vac 0.5 Ml Syr- Adult IMi X1 PRN SEE COMMENTS Docusate Sodium 100 mg 08/12/25 09:00 08/13/25 10:11 Docusate Sod 100 Mg Capsule PO 09/11/25 08:59 100 mg QDAY NAVEED Administration Esomeprazole Magnesium 40 mg 08/13/25 09:00 Esomeprazole Inj 40 Mg Vial IVP 09/12/25 08:59 QDAY NAVEED Folic Acid 1 mg 08/12/25 21:00 08/12/25 20:20 Folic Acid Inj 1 Mg/0.2 Ml IVP 09/11/25 20:59 1 mg BID NAVEED Administration Hydromorphone HCl 1 mg 08/13/25 07:13 Hydromorphone Inj 2 Mg/Ml Vial IVP 08/17/25 07:52 Q4HR PRN BREAKTHROUGH PAIN (SEVERE) Protocol Tranexamic Acid 1,000 mg in 100 mls @ 200 mls/hr 08/10/25 23:32 08/12/25 22:46 Tranexamic Acid Ivpb IV 200 mls/hr [id number] PRN Administration BLEEDING Promethazine HCl 25 mg/ Sodium 51 mls @ 153 mls/hr 08/11/25 17:46 Chloride IV 09/10/25 17:45 Q6HR PRN NAUSEA Piperacillin/Tazobactam/Dextrose 3.375 gm in 50 mls @ 12.5 mls/hr 08/12/25 14:00 08/13/25 10:12 Zosyn IV 08/19/25 13:59 12.5 mls/hr Q8HR NAVEED Administration Protocol Lidocaine 1 patch 08/12/25 15:36 08/12/25 20:26 Lidocaine 5% 1 Patch TOP 09/11/25 15:35 1 patch UD PRN Administration PAIN Protocol Magnesium Hydroxide 30 ml 08/11/25 17:35 08/12/25 22:53 Milk Of Magnesia Susp 30 Ml Udc PO 09/10/25 17:34 30 ml [id number] PRN Administration CONSTIPATION Measles/Mumps/Rubella Vaccine Live 0.5 ml 08/11/25 17:35 Measles, Mumps & Rubella Vacc 0.5 Ml Vial SCi X1 PRN if non-immune or equivocal Simethicone 80 mg 08/11/25 17:35 08/12/25 22:53 Simethicone 80 Mg Chew PO 09/10/25 17:34 80 mg Q4HR PRN Administration GAS Zolpidem Tartrate 10 mg 08/12/25 16:43 08/13/25 02:17 Zolpidem 5 Mg Tablet PO 09/11/25 20:59 10 mg HS PRN Administration ANXIETY Plan 29-year-old female with significant past medical history of indwelling ventriculoperitoneal shunt that was placed after an enterocele repair years ago at [facility] due to postsurgical hydrocephalus and GERD was admitted on 08/10/2025 for labor delivery. s/p and hysterectomy and left salpingo oophorectomy. The patient received total of 4 unit of PRBC, 2 unit of FFP, Zosyn 3.375 g x 1, and was upgraded to ICU for further management of possible DIC and severe hemorrhage. 08/12/25 patient is stable and being transferred back to the OB floor with internal medicine consult in place. #Acute blood loss anemia secondary do bleeding DDx: DIC versus coagulation factor deficiencies Patient is s/p and hysterectomy and left salpingo oophorectomy. The patient received total of 4 unit of PRBC, 2 unit of FFP - Continue to monitor H and H - Transfuse if Hgb drops below 7. - Will consider IV iron if WBC normalizes and no suspicion for infection. - B12 1000 mcg x1 - Folic Acid 1 mg BID #S/p abdominal hysterectomy, left salpingo oophorectomy, and packaging of vaginal vault #S/p In the hospital, the patient's labor contractions were not adequate, and failed vacuum assisted vaginal delivery, and underwent by Dr. Andrade today evening, and was plan to discharge home. However, she continued to have profuse vaginal bleeding due to uterine atonia. The patient was taken back to the OR, and required . During revision OR, patient lost about 2.5 L of blood. Vaginal packing removed: No vaginal bleeding seen - Dr. Andrade on board - Monitor closely - Lidocaine 5% patch for surgical site pain. - DC OFFSET PRINTING OPERATOR, Oral opioid analgesia, Dilaudid IV for severe breakthrough pain - Continue IV antibiotics until discharge - Encourage ambulation with assistance only #Leukocytosis Likely reactive Increased to 14.9 from 11.4 on 08/12. - Will continue to monitor - Continue zosyn - If patient develops a fever or WBC keep increasing will consider blood cultures and broaden antibiotic coverage. #Hypoalbuminemia #Hypoproteinemia Likely secondary to shift of liver function to produce more coagulation factor in the setting of possible underlying coagulation disorder as evidenced by elevated PT and APTT -Daily a.m. labs for CMP -Gave Albumin 25g x1 -Monitor closely #Hypomagnesemia Now stable at 2.0 last reading at 1.3 Repleted with MgSO4 4g -Daily am labs for Mg. #Itching/skin irritation Patient complains of itchiness on the back. No signs of rashes or cosme. - Loratadine 10 mg x1 PO #History of VALIDATION INTERN shunt during childhood Currently her VALIDATION INTERN shunt is nonfunctioning, and patient does not have any hydrocephalus with an MRI during her being normal. Her neurologist Dr. Darien Zurita had evaluated her during care. - Monitor for any signs and symptoms of infection - On empiric Zosyn Health Maintenance: Code Status: Full DVT Prophylaxis: SCDs, ambulation GI Prophylaxis: Protonix Diet: Regular diet, ensure protein Seo: Seo in place Lines: PIV Supplemental O2: 97 NC 5L Disposition: SIDE SEAM ENVELOPE MACHINE OPERATOR, IM on consult, d/c post surgical recovery and stabilization. Patient seen and care discussed with my attending physician, Dr. Mosquera and my senior residents, Dr. Gould and Dr. Lan Gimenez Attending Provider Attestation/Addendum I, Rashmi Dean DO, attest that I was physically present for the morrow portions of the service and evaluated the patient with the resident and I reviewed and discussed the case with the resident and agree with the resident's findings and plans of care as documented above Patient seen and eval this a.m. Patient sitting up in chair. She reports pain at incision site. Patient received 1 unit of PRBC overnight. She has been able to tolerate some breakfast this morning. She denies any nausea or vomiting. Patient received Ambien overnight to help with sleep. The patient remains on IV Zosyn, but has been afebrile. Leukocytosis noted, likely reactive. H&H has otherwise been stable. Encourage patient to use incentive spirometer. Patient has been taken off OFFSET PRINTING OPERATOR pump. No acute events overnight. Continue with postop care. Encourage ambulation. Hospitalist service will continue to follow.
[2025-08-13] MEDS: FOLIC ACID INJ 1 MG/0.2 ML IVP ×2 (13:36→21:27)
[2025-08-13] MEDS: ESOMEPRAZOLE 40 MG IVP (13:44)
[2025-08-13 15:38] VITALS: BMI 12.0
[2025-08-13 15:50] VITALS: BP 130/89; PULSE 97; RESP 18; TEMP 36.9; O2SAT 99
[2025-08-13 20:20] VITALS: BP 115/77; PULSE 92; RESP 16; TEMP 36.8; O2SAT 98
[2025-08-14] VITALS (7 sets, daily range): BP systolic 112–128; BP diastolic 77–84; PULSE 69–88; RESP 16–18; TEMP 36.8–37; O2SAT 96–100
[2025-08-14] MEDS: PIPER/TAZO 3.375 GM PREMIX 3.375 GM/50 ML BAG IV ×3 (02:18→18:09)
[2025-08-14 07:18] LABS: Basophils # (Auto) 0.0 Thou/mm3 (0.0-0.2); Basophils % (Auto) 0 % (0-2.5); Eosinophils # (Auto) 0.5 Thou/mm3 (0.0-0.5); Eosinophils % (Auto) 3 % (0-10); Hematocrit 29.1 % (36.0-46.0); Hemoglobin 10.0 g/dL (12.0-16.0); Immature Granulocytes Auto 0.10 Thou/mm3 (0.00-0.00); Lymphocytes # (Auto) 1.9 Thou/mm3 (1.0-4.8); Lymphocytes % (Auto) 12 % (10-50); Mean Corpuscular HGB Conc 34.4 g/dl (31.0-37.0); Mean Corpuscular Hemoglobin 29.0 pg (25.0-35.0); Mean Corpuscular Volume 84 fL (80-100); Monocytes # (Auto) 1.2 Thou/mm3 (0.0-0.8); Monocytes % (Auto) 8 % (0-12); Neutrophils # (Auto) 11.5 Thou/mm3 (1.8-7.7); Neutrophils % (Auto) 75 % (37-80); Nucleated Red Blood Cell # 0.00 Thou/mm3 (0.00-0.00); Nucleated Red Blood Cell % 0 /100 WBC (0); Platelet Count 142 Thou/mm3 (140-440); RDW Standard Deviation 63.8 fL (36.4-46.3); Red Blood Count 3.45 Miln/mm3 (4.00-5.20); White Blood Count 15.2 Thou/mm3 (3.6-11.0)
[2025-08-14 07:50] LABS: Alanine Aminotransferase 9 U/L (10-49); Albumin, Serum 2.9 gm/dL (3.5-5.0); Albumin/Globulin Ratio 1.6 (1.2-2.2); Alkaline Phosphatase 72 U/L (46-116); Anion Gap 8 (7-16); Aspartate Amino Transferase 19 U/L (0-34); BUN/Creatinine Ratio 10 Ratio (12-20); Bilirubin,Total 0.7 mg/dL (0.3-1.2); Blood Urea Nitrogen 5 mg/dL (9-23); Calcium 8.2 mg/dL (8.3-10.6); Calcium (Corrected) 9.1 mg/dL (8.5-10.1); Carbon Dioxide 26.8 mMol/L (20.0-31.0); Chloride 109 mMol/L (98-107); Creatinine (Component) 0.5 mg/dL (0.6-1.3); Estimated Creatinine Clearance 187.3 mL/min (>60); Globulin 1.8 gm/dL (2.3-3.5); Glucose 89 mg/dL (74-106); Magnesium 1.6 mg/dL (1.6-2.6); Osmolality,Calculated 283 (275-295); Phosphorous 2.4 mg/dL (2.4-5.1); Potassium 3.7 mMol/L (3.4-5.1); Sodium 144 mMol/L (136-145); Total Protein 4.7 gm/dL (5.7-8.2); eGFR > 60 See Note
[2025-08-14] MEDS: DOCUSATE SOD 100 MG CAPSULE PO (07:50)
--- NOTE | 2025-08-14 07:51 | ESPR_ITS ---
Subjective Subjective Interval history: Patient feels better. She is voiding and ambulating. She denies any excessive vaginal bleeding. She denies any dizziness or lightheadedness. She is passing flatus and tolerating a regular diet. She reports less abdominal distention and gas pain. She reports less incisional pain. She has lower extremity swelling and tightness which is bothersome. She denies any chest pain palpitations shortness of breath or lower extremity pain. Exam Vital Signs Temp Pulse Resp BP Pulse Ox O2 Del Method O2 Flow Rate 98.2 F 74 16 128/81 100 Room Air 5 08/14/25 04:00 08/14/25 04:00 08/14/25 04:00 08/14/25 04:00 08/14/25 04:00 08/14/25 04:00 08/11/25 22:50 Routine Respiratory Exam Comments: Clear to auscultation bilaterally Routine Cardiovascular Exam Comments: Regular rate and rhythm Routine Abdominal Exam Comments: Incision clear and intact, no erythema or induration or drainage or ecchymosis. Abdomen nondistended Routine Extremities Exam Comments: +2 bilateral lower extremity edema Nontender Objective Labs 08/14/25 06:40 08/14/25 06:40 Labs: Laboratory Results - last 24 hr 08/10/25 08/14/25 23:55 06:40 WBC 15.2 H RBC 3.45 L Hgb 10.0 L Hct 29.1 L MCV 84 MCH 29.0 MCHC 34.4 RDW Std Deviation 63.8 H Plt Count 142 Neut % (Auto) 75 Lymph % (Auto) 12 [place] % (Auto) 8 Eos % (Auto) 3 Baso % (Auto) 0 Neut # (Auto) 11.5 H Lymph # (Auto) 1.9 [place] # (Auto) 1.2 H Eos # (Auto) 0.5 Baso # (Auto) 0.0 Immature Gran # (Auto) 0.10 H Absolute Nucleated RBC 0.00 Immature Gran % 1 H Nucleated RBC % 0 Sodium 144 Potassium 3.7 Chloride 109 H Carbon Dioxide 26.8 Anion Gap 8 BUN 5 L Creatinine 0.5 L Estim Creat Clear Calc 187.3 eGFR > 60 BUN/Creatinine Ratio 10 L Glucose 89 Calculated Osmolality 283 Calcium 8.2 L Corrected Calcium 9.1 Phosphorus 2.4 Magnesium 1.6 Total Bilirubin 0.7 D AST 19 ALT 9 L Alkaline Phosphatase 72 D Total Protein 4.7 L Albumin 2.9 L D Globulin 1.8 L Albumin/Globulin Ratio 1.6 Crossmatch See Detail ABG Interpretation ABG results: 08/11/25 21:23 ABG pH 7.31 L ABG pCO2 39 ABG pO2 200 H ABG HCO3 20 ABG O2 Saturation 100 H ABG Base Excess -6 L Assessment & Plan Assessment Comment Assessment comment: Postop day #3 status post delivery complicated by uterine atony and hemorrhage Postop day #3 status post abdominal hysterectomy and left salpingo-oophorectomy Endometritis with the risk of peritoneal infection due to and hysterectomy Nonfunctioning HUMAN RESOURCES ASSISTANT shunt Remains afebrile for over 36 hours however white blood cell count slightly trending up which does not necessarily indicate worsening infection however out of an abundance of precaution due to the HUMAN RESOURCES ASSISTANT shunt we will add vancomycin and increase Zosyn dosing to every 6 hours: Blood cultures and urine cultures negative so far. Encourage ambulation Encourage p.o. intake Check labs in the morning Time Spent With Patient Time: Total time spent is greater than 50% in coordination of care (as documented) at patient's floor/unit and/or counseling patient:
[2025-08-14] MEDS: VANCOMYCIN/D5W 1500 MG IVPB 300 ML 120 MG IV (08:46)
[2025-08-14] MEDS: ESOMEPRAZOLE 40 MG IVP (08:46)
[2025-08-14 08:54] LABS: Fibrinogen 637 mg/dL (175-375)
--- NOTE | 2025-08-14 09:44 | ESPR_ITS ---
<Statement entered by Ky Gimenez MD - 08/14/25 21:27> No acute overnight events. Seen and examined at bedside on PO day 3. She was sitting comfortably in her chair and eating breakfast with family present. She endorsed some lightheadedness and dizziness while sitting but vital signs were stable. She is passing gas, urinating with decreased amount of blood present compared to before, but no bowel movements yet. Later on in day patient endorsed increased numbness in RLE with slightly increased swelling compared to left but calve is not painful, no redness, and sensation intact despite numbness. Ordered RLE US and will follow-up on results but recommend against AC given history of post- hemorrhage. ----- Note reviewed and agree with care plan as documented. Please refer to the note below for further details. Plan discussed with attending physician Dr. Dianne Gimenez MD PGY-2 Internal Medicine Documentation for date of: 08/14/25 Subjective Subjective Interval history: The patient is a 29-year-old female with significant past medical history of indwelling ventriculoperitoneal shunt that was placed after an enterocele repair years ago at [facility] due to postsurgical hydrocephalus and GERD was admitted on 08/10/2025 for labor delivery. In the hospital, the patient's labor contractions were not adequate, and failed vacuum assisted vaginal delivery, and underwent . Post she continued to have profuse vaginal bleeding due to uterine atonia. The patient was taken back to the OR, and required abdominal hysterectomy, left salpingo oophorectomy, and packaging of vaginal vault. During revision OR, patient lost about 2.5 L of blood. Patient was admitted to ICU for acute blood loss anemia secondary to vaginal bleeding. On 08/12/2025 patient is being downgraded and internal medicine team is consulted for continued management. 08/12/25: Patient was seen at bedside today afternoon. Her and sister were also present in room. Patient was laying in the bed, in mild distress due to all of the recent events. She noted diffuse weakness and pain at the surgical site. Patient also complained of itchiness, most prominently on the back and expressed concerns regarding cholestasis. Patient is looking forward to going back to the OB floor so she can be with her new born. 08/13/25: No overnight events. Patient was seen at bedside today morning. Patients , new born baby, and another family member was present in the room. Overall patient was alert, oriented, and conversational. Patient was sitting at the edge of the bed and the nurse was holding onto het making sure she doesnt fall. As sitting at the edge she complained of dizziness and lightheadednes. Patient reports unchanged pain at the abdominal surgical site. She still reports itching on the back. Vaginal packing has been removed by OB, H and H is stable, WBC increased (likley reactive). 08/14/25: No acute overnight event. Post op day 3, s/p , hysterectomy, and left salpingo oophorectomy secondary to severe hemorrhage. Patient seen at bedside today morning with Dr. Lan Gimenez. She was sitting in the chair comfortably eating her breakfast, with husand, child and another family member in the room. Patient complained of dizziness and lightheadedness while sitting, likely mutifactorial and a possible side effect of zolpidem. Has not had a bowel movement since last tuesday but passing gas. Surgical site pain is improving and responsive to pain management. Otherwise patient is recovering as expected, vitals are stable, H and H is stable. IM team signing off at this point, will gladly re-join if the need arises. Exam Vital Signs Temp Pulse Resp BP Pulse Ox O2 Del Method O2 Flow Rate 98.2 F 69 16 118/81 100 Room Air 5 08/14/25 04:00 08/14/25 08:45 08/14/25 04:00 08/14/25 08:45 08/14/25 04:00 08/14/25 04:00 08/11/25 22:50 Narrative Exam Gen: Alert, oriented. No acute distress. Conversational and non-toxic appearing. Skin: Normal skin turgor, no rash, ecchymoses, and no signs of cyanosis. S urgical site covered, no signs of active bleeding. HEENT: Normocephalic, atraumatic.? Normal conjunctiva, PERRL. Normal oral mucosa. No obvious lesions in oropharynx. Cardiovascular: Regular rate and rhythm, no murmur, +S1/S2. Respiratory: Lungs are clear to auscultation, respirations unlabored, no crackles, no wheezing. Gastrointestinal: Diffuse tenderness at the surgical site, no palpation performed brayan to pain. Increased bowel sounds. Patient has not had a bowel movement in past few days. Extremities: 2+ peripheral edema in bilateral lower extremities upto knee. 1+ peripheral edema in bilateral upper extremities. No signs of cyanosis, color changes, intact and equal peripheral pulses. Neuro: Alert and oriented x3.No focal deficits observed. Conversant, moving all extremities. No motor or sensory deficits in bilateral upper or lower extremities. No overt cerebellar signs/incoordination. Psychiatric: Cooperative, appropriate affect in consideration with significant recent events. Objective Labs 08/15/25 05:56 08/15/25 05:56 Labs: Laboratory Results - last 24 hr 08/10/25 08/14/25 23:55 06:40 WBC 15.2 H RBC 3.45 L Hgb 10.0 L Hct 29.1 L MCV 84 MCH 29.0 MCHC 34.4 RDW Std Deviation 63.8 H Plt Count 142 Neut % (Auto) 75 Lymph % (Auto) 12 [place] % (Auto) 8 Eos % (Auto) 3 Baso % (Auto) 0 Neut # (Auto) 11.5 H Lymph # (Auto) 1.9 [place] # (Auto) 1.2 H Eos # (Auto) 0.5 Baso # (Auto) 0.0 Immature Gran # (Auto) 0.10 H Absolute Nucleated RBC 0.00 Immature Gran % 1 H Nucleated RBC % 0 Fibrinogen 637 H* Sodium 144 Potassium 3.7 Chloride 109 H Carbon Dioxide 26.8 Anion Gap 8 BUN 5 L Creatinine 0.5 L Estim Creat Clear Calc 187.3 eGFR > 60 BUN/Creatinine Ratio 10 L Glucose 89 Calculated Osmolality 283 Calcium 8.2 L Corrected Calcium 9.1 Phosphorus 2.4 Magnesium 1.6 Total Bilirubin 0.7 D AST 19 ALT 9 L Alkaline Phosphatase 72 D Total Protein 4.7 L Albumin 2.9 L D Globulin 1.8 L Albumin/Globulin Ratio 1.6 Crossmatch See Detail ABG Interpretation ABG results: 08/11/25 21:23 ABG pH 7.31 L ABG pCO2 39 ABG pO2 200 H ABG HCO3 20 ABG O2 Saturation 100 H ABG Base Excess -6 L Quality Measures Quality Measures VTE prophylaxis (SCD's) Assessment & Plan Assessment Current Active Medications: Generic Name Dose Route Start Last Admin Trade Name Freq PRN Reason Stop Dose Admin Hydrocodone Bitart/Acetaminophen 1 tab 08/13/25 07:13 08/14/25 07:50 Hydrocodone/Apap 10/325 Tab PO 08/18/25 07:12 1 tab Q4HR PRN Administration PAIN SCALE 4-10(Mod-Sev Al Hydrox/Mg Hydrox/Simethicone 30 ml 08/11/25 19:48 Mg Hyd/Al Hyd/Uziel (Maalox Reg) Susp 30 Ml Udc PO 09/10/25 19:47 Q4HR PRN Heartburn or Upset Stomach Benzocaine 1 spray 08/10/25 23:32 Benzo/Lano/Aloe (Dermoplast) 60 Gm Can TOP 09/09/25 23:31 PRN PRN PERINEAL DISCOMFORT Diphtheria/Tetanus/Acell Pertussis 0.5 ml 08/11/25 17:35 Diphth,Pertuss(Acell),Tet Vac 0.5 Ml Syr- Adult IMi X1 PRN SEE COMMENTS Docusate Sodium 100 mg 08/12/25 09:00 08/14/25 07:50 Docusate Sod 100 Mg Capsule PO 09/11/25 08:59 100 mg QDAY NAVEED Administration Esomeprazole Magnesium 40 mg 08/13/25 09:00 08/14/25 08:46 Esomeprazole Inj 40 Mg Vial IVP 09/12/25 08:59 40 mg QDAY NAVEED Administration Folic Acid 1 mg 08/12/25 21:00 08/13/25 21:27 Folic Acid Inj 1 Mg/0.2 Ml IVP 09/11/25 20:59 1 mg BID NAVEED Administration Hydrochlorothiazide 25 mg 08/14/25 09:00 08/14/25 08:45 Hydrochlorothiazide 12.5 Mg Capsule PO 09/13/25 08:59 12.5 mg QDAY NAVEED Administration Hydromorphone HCl 1 mg 08/13/25 07:13 Hydromorphone Inj 2 Mg/Ml Vial IVP 08/17/25 07:52 Q4HR PRN BREAKTHROUGH PAIN (SEVERE) Protocol Tranexamic Acid 1,000 mg in 100 mls @ 200 mls/hr 08/10/25 23:32 08/12/25 22:46 Tranexamic Acid Ivpb IV 200 mls/hr [id number] PRN Administration BLEEDING Promethazine HCl 25 mg/ Sodium 51 mls @ 153 mls/hr 08/11/25 17:46 Chloride IV 09/10/25 17:45 Q6HR PRN NAUSEA Piperacillin/Tazobactam/Dextrose 3.375 gm in 50 mls @ 100 mls/hr 08/14/25 12:00 Zosyn IV 08/21/25 11:59 Q6HR NAVEED Protocol Vancomycin HCl/Dextrose 300 mls @ 120 mls/hr 08/14/25 08:15 08/14/25 08:46 Vancomycin/D5w 1500 Mg Ivpb IV 08/14/25 10:44 120 mls/hr X1 ONE Administration Vancomycin/Sodium Chloride 200 mls @ 120 mls/hr 08/14/25 22:00 Vancomycin/Ns 1 Gm Ivpb IV 08/21/25 21:59 BID@1000,2200 [facility] Protocol Lidocaine 1 patch 08/12/25 15:36 08/12/25 20:26 Lidocaine 5% 1 Patch TOP 09/11/25 15:35 1 patch UD PRN Administration PAIN Protocol Magnesium Hydroxide 30 ml 08/11/25 17:35 08/12/25 22:53 Milk Of Magnesia Susp 30 Ml Udc PO 09/10/25 17:34 30 ml [id number] PRN Administration CONSTIPATION Measles/Mumps/Rubella Vaccine Live 0.5 ml 08/11/25 17:35 Measles, Mumps & Rubella Vacc 0.5 Ml Vial SCi X1 PRN if non-immune or equivocal Pharmacy Consult 1 each 08/14/25 09:00 Vancomycin Pharmacy To Dose 1 Each Each IV 09/13/25 08:59 QDAY PRN PROTOCOL Simethicone 80 mg 08/11/25 17:35 08/12/25 22:53 Simethicone 80 Mg Chew PO 09/10/25 17:34 80 mg Q4HR PRN Administration GAS Zolpidem Tartrate 10 mg 08/12/25 16:43 08/13/25 02:17 Zolpidem 5 Mg Tablet PO 09/11/25 20:59 10 mg HS PRN Administration ANXIETY Plan 29-year-old female with significant past medical history of indwelling ventriculoperitoneal shunt that was placed after an enterocele repair years ago at [facility] due to postsurgical hydrocephalus and GERD was admitted on 08/10/2025 for labor delivery. s/p and hysterectomy and left salpingo oophorectomy. The patient received total of 4 unit of PRBC, 2 unit of FFP, Zosyn 3.375 g x 1, and was upgraded to ICU for further management of possible DIC and severe hemorrhage. 08/12/25 patient is stable and being transferred back to the OB floor with internal medicine consult in place. #Acute blood loss anemia- s/p >10 units prbc secondary to # hemorrhage #S/p total abdominal hysterectomy, left salpingo oophorectomy - post op day 3 #Leukocytosis- likely reactive In the setting of #History of DROP TESTER shunt >10 years ago - In the hospital, the patient's labor contractions were not adequate, and failed vacuum assisted vaginal delivery, and underwent by Dr. Andrade and later required hysterectomy and left salpingo oophorectomy. - Patient was upgraded to ICU on 08/12/25 for management on acute severe hemorrhage and possible DIC - On 08/13/25 patient downgraded to medical floors and IM consulted. - 08/14/15: Patient is recovering as expected, able to ambulate with assistance, stable H and H Recommendations: - Continue to monitor H and H - Transfuse if Hgb drops below 10. - Consider IV iron if WBC normalizes and no suspicion for infection. - B12 1000 mcg x1 - Folic Acid 1 mg PO - Lidocaine 5% patch for surgical site pain - Incentive spirometer PRN Q2HR - Encourage ambulation with assistance - Continue Zosyn Q6H and Vanco #Diffuse pruritus, benign Patient complains of itchiness on the back. No signs of rashes or cosme. - Recommend Loratadine 10 mg PRN PO #Insomnia Recommend 5mg Zolpidem (ambien), 10 mg is potentially too high for her considering she has symptoms of dizziness next morning #Pedal Edema Recommend d/c Hydrochlorothiazide as it is can be nephrotoxic, would recommend loop diuretics (lasix) if needed for pedal edema. If Hydrochlorothiazide was being used to manage blood pressure, would recommend other first line medication such as Scooter/Arb or CCB before Htz. #Constipation- likely Opioid induced - Patient is passing radha, minimal nausea, and no vomiting, minimal concern for SBO. - Consider methyl naltrexone (Movantik), if constipation does not resolve? IM team signing off at this time, thank you for the opportunity to help in this patient's care. Please reach out if any need for any internal medicine services come up. Health Maintenance: Code Status: Full DVT Prophylaxis: SCDs, ambulation GI Prophylaxis: Protonix Diet: Regular diet, ensure protein Seo: Seo in place Lines: PIV Supplemental O2: 97 NC 5L Disposition: PLASTIC MAKER, IM on consult, d/c post surgical recovery and stabilization. Patient seen and care discussed with my attending physician, Dr. Mosquera and my senior residents, Dr. Gould and Dr. Lan Gimenez Attending Provider Attestation/Addendum I, Rashmi Dean, , attest that I was physically present for the morrow portions of the service and evaluated the patient with the resident and I reviewed and discussed the case with the resident and agree with the resident's findings and plans of care as documented above Patient seen and eval this afternoon. She states that she is doing better today. Patient is sitting up in recliner with baby in her arms. She states that she has been able to shower twice a day and feels much better. She continues to have some pain limiting her from taking deep breaths and moving around otherwise. She continues to complain of bilateral lower extremity edema. She states that throughout her the left leg was more swollen than the right. She also reports some numbness in her legs due to worsening swelling. Encourage patient to keep bilateral lower extremities elevated. Per nursing at bedside, patient's IVs have been leaking, likely secondary to anasarca. Patient was given hydrochlorothiazide by the PLASTIC MAKER INFORMATION AND REFERRAL DIRECTOR due to her generalized edema. Encourage patient to ambulate to improve her circulation and edema. Patient has about 2+ pedal edema and 1+ pitting edema in bilateral calves. Patient is very concerned due to the numbness. Will order ultrasound venous Doppler to rule out any DVT. Will also switch IV medications to oral as IVs are limited. Patient was given vancomycin x 1 by PLASTIC MAKER due to her uptrending leukocytosis. However, patient has been afebrile and suspect leukocytosis to be reactive. She endorses having some dizziness this morning when she got up from bed. May be secondary to pain and deconditioning, as well as zolpidem. Will decrease zolpidem dose from 10 mg to 5 mg instead. Case was discussed with PLASTIC MAKER, internal medicine will sign off at this time as patient has been doing well and is more stable. Please do not hesitate to recall internal medicine if needed
[2025-08-14] MEDS: FOLIC ACID INJ 1 MG/0.2 ML IVP (10:18)
--- NOTE | 2025-08-14 17:25 | XR_ITS ---
Examination: Duplex scan of the lower extremity, unilateral right Date and time of exam: August 14, 2025, 1810 hrs. Indications: Right leg swelling and numbness beginning 4 days ago, post hysterectomy history Technique: Duplex scan of the extremity veins using B-mode/grayscale imaging and Doppler spectral analysis and color flow Attention is directed to internal echogenicity, compression and augmentation involving these veins, color flow assessment, spectral analysis Findings: Major deep venous structures in the extremity demonstrate normal course and caliber. There is no evidence of deep vein thrombosis. Normal color flow and spectral analysis Impression: Negative for DVT..
[2025-08-14] MEDS: VANCOMYCIN/NS 1 GM IVPB 200 ML IV (22:01)
[2025-08-15] MEDS: ZOLPIDEM 5 MG TABLET PO (00:11)
[2025-08-15] MEDS: PIPER/TAZO 3.375 GM PREMIX 3.375 GM/50 ML BAG IV ×2 (00:11→05:50)
[2025-08-15 00:12] VITALS: BP 122/80; PULSE 73; RESP 16; TEMP 36.8; O2SAT 99
[2025-08-15 04:23] VITALS: BP 132/81; PULSE 69; RESP 18; TEMP 36.7; O2SAT 98
[2025-08-15 06:24] LABS: Basophils # (Auto) 0.1 Thou/mm3 (0.0-0.2); Basophils % (Auto) 1 % (0-2.5); Eosinophils # (Auto) 0.5 Thou/mm3 (0.0-0.5); Eosinophils % (Auto) 4 % (0-10); Hematocrit 30.6 % (36.0-46.0); Hemoglobin 10.4 g/dL (12.0-16.0); Immature Granulocytes Auto 0.09 Thou/mm3 (0.00-0.00); Lymphocytes # (Auto) 1.7 Thou/mm3 (1.0-4.8); Lymphocytes % (Auto) 14 % (10-50); Mean Corpuscular HGB Conc 34.0 g/dl (31.0-37.0); Mean Corpuscular Hemoglobin 28.7 pg (25.0-35.0); Mean Corpuscular Volume 84 fL (80-100); Monocytes # (Auto) 1.2 Thou/mm3 (0.0-0.8); Monocytes % (Auto) 10 % (0-12); Neutrophils # (Auto) 8.5 Thou/mm3 (1.8-7.7); Neutrophils % (Auto) 71 % (37-80); Nucleated Red Blood Cell # 0.00 Thou/mm3 (0.00-0.00); Nucleated Red Blood Cell % 0 /100 WBC (0); Platelet Count 210 Thou/mm3 (140-440); RDW Standard Deviation 64.4 fL (36.4-46.3); Red Blood Count 3.63 Miln/mm3 (4.00-5.20); White Blood Count 12.0 Thou/mm3 (3.6-11.0)
[2025-08-15 06:41] LABS: Alanine Aminotransferase 10 U/L (10-49); Albumin, Serum 3.1 gm/dL (3.5-5.0); Albumin/Globulin Ratio 1.6 (1.2-2.2); Alkaline Phosphatase 74 U/L (46-116); Anion Gap 8 (7-16); Aspartate Amino Transferase 25 U/L (0-34); BUN/Creatinine Ratio 8 Ratio (12-20); Bilirubin,Total 0.6 mg/dL (0.3-1.2); Blood Urea Nitrogen 9 mg/dL (9-23); Calcium 8.9 mg/dL (8.3-10.6); Calcium (Corrected) 9.6 mg/dL (8.5-10.1); Carbon Dioxide 29.5 mMol/L (20.0-31.0); Chloride 108 mMol/L (98-107); Creatinine (Component) 1.2 mg/dL (0.6-1.3); Estimated Creatinine Clearance 78.0 mL/min (>60); Globulin 2.0 gm/dL (2.3-3.5); Glucose 93 mg/dL (74-106); Magnesium 1.7 mg/dL (1.6-2.6); Osmolality,Calculated 287 (275-295); Phosphorous 4.4 mg/dL (2.4-5.1); Potassium 3.8 mMol/L (3.4-5.1); Sodium 145 mMol/L (136-145); Total Protein 5.1 gm/dL (5.7-8.2); eGFR > 60 See Note
[2025-08-15 08:20] VITALS: BP 142/90; PULSE 67; RESP 18; TEMP 36.8; O2SAT 98
[2025-08-15 08:34] VITALS: BP 142/90; PULSE 67
[2025-08-15] MEDS: DOCUSATE SOD 100 MG CAPSULE PO (08:34)
[2025-08-15] MEDS: FOLIC ACID 1 MG TABLET PO (08:34)
--- NOTE | 2025-08-15 10:14 | PC.NURSE ---
Patient seen and cleared by Gatito in social media editor
--- NOTE | 2025-08-15 12:13 | PC.SS ---
BOTTLING ROOM WORKER conducted bedside contact with the patient to discuss emotional status. Patient reports sadness due to hysterectomy. Patient acknowledge that event will take time to process. Patient shared that FOB and family have been supported and will continue to be supportive to the patient. Patient informed BOTTLING ROOM WORKER need to focus on rearing of infant son. Patient identified that although event traumatic, patient was able to deliver healthy infant. Per patient focus will be on infant. Patient confirmed possession of resources that BOTTLING ROOM WORKER had previously provided to address emotional status. FOB voiced no concerns with plan to discharge patient home today. FOB will be present with patient at home. Patient denied current intent/plan of SI/HI. BOTTLING ROOM WORKER updated bedside nurse.
== END 2025-08-15 13:00 | disposition home or self-care (01) | DRG 784 ==
LOC: S4SX 08-11 00:39 → S4NX 08-11 16:47 → S2SX 08-12 06:09 → S4NX 08-12 19:22 → S2SX 09-06 09:09 → S4NX 09-06 09:09
PROVIDERS: Nurse Anesthetist, Certified Registered; Student in an Organized Health Care Education/Training Program; Admitting Provider Specialist; Visit Provider Internal Medicine
PROC: 10D00Z1 Extraction of Products of Conception, Low, Open Approach (ICD-10-PCS; CPT 59514; principal; 2025-08-11 16:20)
PROC: 0UT90ZZ Resection of Uterus, Open Approach (ICD-10-PCS; principal; 2025-08-11 18:30)
PROC: 10D00Z1 Extraction of Products of Conception, Low, Open Approach (ICD-10-PCS; CPT 58720; 2025-08-11 18:30)
PROC: 10D00Z1 Extraction of Products of Conception, Low, Open Approach (ICD-10-PCS; CPT 49000; 2025-08-11 18:30)
DX: O75.89 Other specified complications of labor and delivery (principal); D62 Acute posthemorrhagic anemia; O99.12 Other diseases of the blood and blood-forming organs and certain disorders involving the immune mechanism complicating childbirth; E87.29 Other acidosis; G91.9 Hydrocephalus, unspecified; O72.1 Other immediate postpartum hemorrhage; O62.1 Secondary uterine inertia; Z37.0 Single live birth; Z3A.39 39 weeks gestation of pregnancy; O66.5 Attempted application of vacuum extractor and forceps; N71.9 Inflammatory disease of uterus, unspecified; N80.9 Endometriosis, unspecified; Z98.2 Presence of cerebrospinal fluid drainage device; K21.9 Gastro-esophageal reflux disease without esophagitis; E83.42 Hypomagnesemia; O99.284 Endocrine, nutritional and metabolic diseases complicating childbirth; O36.63X0 Maternal care for excessive fetal growth, third trimester, not applicable or unspecified; O12.04 Gestational edema, complicating childbirth; O75.1 Shock during or following labor and delivery; O90.81 Anemia of the puerperium; E87.8 Other disorders of electrolyte and fluid balance, not elsewhere classified; E77.8 Other disorders of glycoprotein metabolism; E88.09 Other disorders of plasma-protein metabolism, not elsewhere classified
CPT/HCPCS: 36415; 36600; 59025; 59409; 59899; 74018; 80053; 80202; 82803; 83605; 83735; 84100; 85014; 85018; 85025; 85379; 85384; 85610; 85730; 86780; 86850; 86900; 86901; 86923; 86927; 86965; 87040; 87081; 87086; 93005; 93971; 94762; 97163; A4217; A4314; A4649; J0131; J0295; J0461; J0613; J0689; J1171; J1885; J2175; J2210; J2250; J2270; J2371; J2543; J2590; J2704; J2765; J2795; J3010; J3373; J3420; J3475; J3490; J7120; P9012; P9016; P9035; P9045; P9047; P9060; S0191; A9270; J7999

== ENCOUNTER 2025-08-25 19:49 | Emergency (ER) | payer OTHER, SELFPAY ==
[2025-08-25 20:05] VITALS: BP 141/95; PULSE 83; RESP 20; TEMP 37.4; O2SAT 95
[2025-08-25 20:28] LABS: Basophils # (Auto) 0.1 Thou/mm3 (0.0-0.2); Basophils % (Auto) 1 % (0-2.5); Eosinophils # (Auto) 0.4 Thou/mm3 (0.0-0.5); Eosinophils % (Auto) 4 % (0-10); Hematocrit 35.4 % (36.0-46.0); Hemoglobin 11.5 g/dL (12.0-16.0); Immature Granulocytes Auto 0.03 Thou/mm3 (0.00-0.00); Lymphocytes # (Auto) 3.0 Thou/mm3 (1.0-4.8); Lymphocytes % (Auto) 33 % (10-50); Mean Corpuscular HGB Conc 32.5 g/dl (31.0-37.0); Mean Corpuscular Hemoglobin 28.4 pg (25.0-35.0); Mean Corpuscular Volume 87 fL (80-100); Monocytes # (Auto) 0.5 Thou/mm3 (0.0-0.8); Monocytes % (Auto) 6 % (0-12); Neutrophils # (Auto) 5.1 Thou/mm3 (1.8-7.7); Neutrophils % (Auto) 56 % (37-80); Nucleated Red Blood Cell # 0.00 Thou/mm3 (0.00-0.00); Nucleated Red Blood Cell % 0 /100 WBC (0); Platelet Count 444 Thou/mm3 (140-440); RDW Standard Deviation 49.1 fL (36.4-46.3); Red Blood Count 4.05 Miln/mm3 (4.00-5.20); White Blood Count 9.2 Thou/mm3 (3.6-11.0)
[2025-08-25 20:46] LABS: Alanine Aminotransferase 17 U/L (10-49); Albumin, Serum 4.2 gm/dL (3.5-5.0); Albumin/Globulin Ratio 1.5 (1.2-2.2); Alkaline Phosphatase 78 U/L (46-116); Anion Gap 7 (7-16); Aspartate Amino Transferase 19 U/L (0-34); BUN/Creatinine Ratio 16 Ratio (12-20); Bilirubin,Total 0.4 mg/dL (0.3-1.2); Blood Urea Nitrogen 14 mg/dL (9-23); Calcium 9.5 mg/dL (8.3-10.6); Calcium (Corrected) 9.5 mg/dL (8.5-10.1); Carbon Dioxide 25.6 mMol/L (20.0-31.0); Chloride 106 mMol/L (98-107); Creatinine (Component) 0.9 mg/dL (0.6-1.3); Estimated Creatinine Clearance 94.0 mL/min (>60); Globulin 2.8 gm/dL (2.3-3.5); Glucose 98 mg/dL (74-106); Osmolality,Calculated 278 (275-295); Potassium 3.6 mMol/L (3.4-5.1); Sodium 139 mMol/L (136-145); Total Protein 7.0 gm/dL (5.7-8.2); eGFR > 60 See Note
--- NOTE | 2025-08-25 21:12 | PD.EDRME ---
Rapid Medical Screening Exam RME Arrival date/time: 08/25/25 19:49 Chief Complaint: Urogenital-Female Time Seen by Provider: 08/25/25 20:03 Vital signs: Vital Signs Temperature 99.3 F 08/25/25 20:05 Pulse Rate 83 08/25/25 20:05 Respiratory Rate 20 08/25/25 20:05 Blood Pressure 141/95 H 08/25/25 20:05 Pulse Oximetry (%) 95 08/25/25 20:05 Oxygen Delivery Method Room Air 08/25/25 20:05
[2025-08-25 21:15] LABS: HCG,Qualitative Serum Negative
[2025-08-25 21:22] LABS: Collection Type, Urine Voided
--- NOTE | 2025-08-25 21:42 | EDNOTE_ITS ---
ED Female Urogenital RME/HPI General Chief complaint: Urogenital-Female Stated complaint: SENT BY DR. GRAY FOR ANTIBIOTICS Time Seen by Provider: 08/25/25 20:03 Arrival date/time: 08/25/25 19:49 This is a case of 29-year-old female who was sent by her Dr Gray for IV antibiotics meropenem for iatrogenic urinary tract infection 2 weeks prior to arrival in the emergency room patient had a complicated section with hemorrhage with complete hysterectomy patient stayed in the hospital for 6 days patient had urine culture and showed that the patient have bacterial infection in the urine and resistant to oral medication thus he was sent by Dr. Kaur for IV antibiotics patient denies any abdominal pain nausea vomiting or any painful urination Limitations: no limitations Related Data Home Medications ?Medication ?Instructions ?Recorded ?Confirmed vit no.95-ferrous 1 tab PO .QD 05/20/2508/10 fumarate 28 mg-folic acid 800 mcg tablet () Previous Rx's ?Medication ?Instructions ?Recorded hydrocodone 5 mg-acetaminophen 325 1 tab PO Q6H PRN pa in #20 tabs 08/11/25 mg tablet ibuprofen 600 mg tablet 600 mg PO Q6H PRN pain #30 t abs 08/11/25 amoxicillin 875 mg-potassium 1 tab PO Q12H #10 tabs clavulanate 125 mg tablet docusate sodium 100 mg capsule 100 mg PO BID PRN const ipation #30 08/15/25 caps hydrochlorothiazide 12.5 mg tablet 12.5 mg PO QDAY PRN leg swelling 08/15/25 #7 tabs sulfamethoxazole 800 1 tab PO BID #10 tabs mg-trimethoprim 160 mg tablet (Bactrim DS) Allergies Allergy/AdvReac Type Severity Reaction Status Date / Time No Known Allergies Allergy Verified 08/10/25 21:05 Review of Systems Constitutional Constitutional: Reports system reviewed and no additional complaints, except as documented and Reports as per HPI Cardiovascular Cardiovascular: Reports system reviewed and no additional complaints, except as documented and Reports as per HPI Respiratory Respiratory: Reports system reviewed and no additional complaints, except as documented and Reports as per HPI Gastrointestinal Gastrointestinal: Reports system reviewed and no additional complaints, except as documented and Reports as per HPI Genitourinary Genitourinary: Reports system reviewed and no additional complaints, except as documented and Reports as per HPI Musculoskeletal Musculoskeletal: Reports system reviewed and no additional complaints, except as documented and Reports as per HPI Neurologic Neurologic: Reports system reviewed and no additional complaints, except as docu mented and Reports as per HPI Past Medical History Past Medical History NEUROLOGIC: Positive Neurological Disorders; Negative Seizures CARDIAC: Negative Cardiac Disorders or Congestive Heart Failure RESPIRATORY: Negative Chronic Obstructive Pulmonary Disease (COPD) or Asthma GASTROINTESTINAL: Positive Hemorrhoids (WITH BANDING); Negative Gastrointestinal Disorders (fobt+, BLEEDING WITH BOWEL MOVEMENTS, CONSTIPATION) GENITOURINARY: Negative Genitourinary Disorders or Renal Disease REPRODUCTIVE: Negative Pelvic Inflammatory Disease MUSCULOSKELETAL: Negative Musculoskeletal Disorders ENDOCRINE: Negative Endocrine Disorders, Diabetes Mellitus Type 1 or Diabetes Mellitus Type 2 HEMATOLOGIC: Negative Blood Disorders or Sickle Cell Disease PSYCHO/SOCIAL: Positive Anxiety OTHER HISTORY: Positive Chicken Pox; Negative Autoimmune Disease, Blood Transfusions, Blood Transfusion Reaction or Anesthesia Reactions Family History FAMILY HISTORY: Negative Family Psychiatric Problems, Family Respiratory Disorders, Family Cardiac Disorders, Family Gastrointestinal Problems, Family Cancer, Family Surgery or Family Anesthesia Reaction Surgical History SURGICAL: Negative Section Social History SMOKING STATUS: Never smoker ED Exam General Limitations: Present no limitations General appearance: Present alert, in no apparent distress and other (Patient is awake alert oriented not in distress nontoxic looking well-hydrated well- nourished) Head Head exam: Present atraumatic, normocephalic and normal inspection Eye Eye exam: Present normal appearance, PERRL and EOMI ENT ENT exam: Present normal exam, normal oropharynx and mucous membranes moist Neck Neck exam: Present normal inspection, full ROM and trachea midline; Absent tenderness, meningismus, lymphadenopathy or thyromegaly Chest Chest inspection: Present normal inspection and symmetric chest wall rise; Absent tenderness Respiratory Respiratory exam: Present normal lung sounds bilaterally; Absent respiratory distress, wheezes, stridor, accessory muscle use or prolonged expiratory phase Cardiovascular Cardiovascular exam: Present regular rate, normal rhythm and normal heart sounds; Absent bradycardia, tachycardia, irregular rhythm, systolic murmur or diastolic murmur Abdominal Exam Abdominal exam: Present soft; Absent distention, tenderness, guarding, rebound, rigidity, normal bowel sounds, diminished bowel sounds, hyperactive bowel sounds, hypoactive bowel sounds or organomegaly Extremities Exam Extremities exam: Present normal inspection and full ROM Back Exam Back exam: Present normal inspection and full ROM Neurological Exam Neurological exam: Present alert, oriented X3, CN II-XII intact, normal gait and reflexes normal; Absent motor sensory deficit Psychiatric Psychiatric exam: Present normal affect and normal mood Skin Skin exam: Present warm, dry, intact and normal color Course Quality Measures none Orders Category Date Time Status Saline [Insert IV] NOW Care 08/25/25 21:17 Active CBC Stat Lab 08/25/25 20:23 Completed CMP [Comprehensive Metabolic Panel] Stat Lab 08/25/25 20:23 Completed HCG,Qualitative Serum Stat Lab 08/25/25 20:23 Completed Urinalysis Stat Lab 08/25/25 20:51 Received Meropenem Inj [Merrem Inj] 2,000 mg Med 08/25/25 20:14 Discontinued SODIUM CHLORIDE 0.9% (Popper) [Ns 0.9% (P)] 50 ml IV X1 Vital Signs Vital signs: Vital Signs Temperature 99.3 F 08/25/25 20:05 Pulse Rate 83 08/25/25 20:05 Respiratory Rate 20 08/25/25 20:05 Blood Pressure 141/95 H 08/25/25 20:05 Pulse Oximetry (%) 95 08/25/25 20:05 Oxygen Delivery Method Room Air 08/25/25 20:05 None Urogenital - Female MDM Narrative MDM Narrative:: This is a case of 29-year-old female who was sent by her Dr Gray for IV antibiotics meropenem for iatrogenic urinary tract infection 2 weeks prior to arrival in the emergency room patient had a complicated section with hemorrhage with complete hysterectomy patient stayed in the hospital for 6 days patient had urine culture and showed that the patient have bacterial infection in the urine and resistant to oral medication thus he was sent by Dr. Kaur for IV antibiotics patient denies any abdominal pain nausea vomiting or any painful urination physical examination patient is awake alert oriented not in distress nontoxic looking abdominal exam is benign nonsurgical no guarding no rebound no rigidity negative psoas negative straight or negative Rovsing's negative [place]'s no [place] sign negative CVA tenderness vital signs stable BP stable not tachycardic not tachypneic afebrile and nonhypoxic no signs and symptoms of dehydration no signs and symptoms of hypoxia patient blood test showed no leukocytosis no anemia kidney and liver function is normal no electrolyte imbalance urinalysis still pending meropenem IV was given per instruction of Dr Gray I spoke to Dr. Kaur by phone and I was instructed to give patient meropenem 2 g IV today and the next 2 days patient was advised to follow-up with PCP in 2 days for reevaluation for any worsening symptoms or any emergent concern return precaution in the ER was advised Patient was discharged with comfortable condition walking with stable gait. Patient verbalized no further complains explained diagnosis and answered patient question. Patient is comfortable with the proposed management plan including the need to follow up with his/her primary care physician and any specialist if applicable Discussed patient for any urgent condition or worsening sx, He/She needed to go to emergency room immediately or call 911. Patient acknowledge the responsibility to follow up as instructed and to monitor her/his symptoms. For any persistence of the symptoms for more than 3-5 days return precaution advised. Discussed the result of the test and was given printed discharge instruction Patient data External records reviewed:: [facility] previous records Clinical information provided by:: patient Social determinants that could affect healthcare access:: none Patient has the following chronic illnesses:: None How is presenting disease/condition affected by chronic disease/condition?: no chronic disease Evaluation data The following diagnostics were reviewed and interpreted by me:: lab results (Reviewed) Lab and/or radiology exams considered but not ordered:: Reviewed Interpretation Summary: Reviewed Medications / Prescriptions Medications or Prescriptions considered but not ordered:: Given Medication administrations:: Medication Administration History Discontinued Medications Meropenem 2,000 mg/ Sodium (Chloride) 50 mls @ 100 mls/hr IV X1 ONE Stop: 08/25/25 20:15 Last Admin: 08/25/25 21:33 Dose: 100 mls/hr Documented By: [email or web address] Given Consultations Consultation(s) initiated? (list below): Yes Consultation #1 (Physician, Specialty, Details): Dr Gray ordered to give meropenem 2 g today and discharge patient Diagnosis Urogenital Female Differential Diagnosis: urinary tract infection Most likely diagnosis given after review of the tests above:: Urinary tract infection Admission Indicated Admission indicated?: not indicated Explain why admission is indicated or not indicated:: Not indicated Admission Request Was there a request for admission?: No Admission Attestation Admission request attestation: Not indicated Disposition Plan Disposition Plan: Discharge Discharge Attestation Discharge Attestation: The patient and all family members were given an opportunity to ask questions and understood the discharge instructions. Discharge instructions specifically effects, indications for sooner follow up or return to the emergency department, and the expected course of current diagnosis. Patient condition: Stable Discharge Plan Plan Patient Disposition: HOME (Self Care) Patient condition on transfer: Stable Prescriptions/Referrals Prescriptions/Med Rec: No Action PNV no.95-ferrous fumarate-FA [] 28 mg iron- 800 mcg tablet 1 tab PO .QD Patient Comments: TAKE 1 TABLET BY MOUTH EVERY DAY hydrocodone-acetaminophen 5-325 mg tablet 1 tab PO Q6H MDD 4 PRN (Reason: pain) Qty: 20 0RF ibuprofen 600 mg tablet 600 mg PO Q6H PRN (Reason: pain) Qty: 30 0RF sulfamethoxazole-trimethoprim [Bactrim DS] 800-160 mg tablet 1 tab PO BID Qty: 10 0RF amoxicillin-pot clavulanate 875-125 mg tablet 1 tab PO Q12H Qty: 10 0RF docusate sodium 100 mg capsule 100 mg PO BID PRN (Reason: constipation) Qty: 30 0RF hydrochlorothiazide 12.5 mg tablet 12.5 mg PO QDAY PRN (Reason: leg swelling) Qty: 7 0RF Referrals: Yenifer Roberts MD [Primary Care Provider, Nephrology] - In 1 week Problem List Clinical Impression: Urinary tract infection Patient/Caregiver Discharge Instructions Education Materials: Understanding Urinary Tract ... Additional Instructions: Return tomorrow same time for another dose of meropenem as discussed by Dr. Isaacs follow-up with your primary care physician in 2 days for reevaluation worsening symptoms or any emergent concern return to the emergency room immediately or call 911 increase water intake is advised Print Language: Lebanese Stand Alone Forms: Jen Award Info., Patient Portal Info Letter PA/PRODUCTION INTERN Supervising Physician PA/KATHERIN Supervising Physician: Dr. Lucio Peres
[2025-08-25 21:45] LABS: Bacteria,Urine Rare; Bilirubin,Urine Negative (Negative); Blood,Urine 3+ (Negative); Clarity,Urine Turbid (Clear/Hazy); Color,Urine Yellow (Lt Yel-Yel); Glucose, Urine Negative (Negative); Ketones,Urine Negative (Negative); Leukocyte Esterase,Urine Positive (Negative); Nitrite,Urine Negative (Negative); PH,Urine 5.5 (5.0-7.0); Protein,Urine 1+ (Neg - Trace); RBC,Urine 132 /hpf (0-3); Specific Gravity,Urine 1.028 (1.001-1.035); Squamous Epithelial Cell,Urine 14 /hpf (0-5); Urobilinogen,Urine Negative mg/dL (0.0-1.0); WBC,Urine 347 /hpf (0-5)
[2025-08-25 22:22] VITALS: BP 107/73; PULSE 71; RESP 19; TEMP 37.2; O2SAT 99
== END 2025-08-25 22:26 | disposition home or self-care (01) ==
PROVIDERS: Nurse Practitioner Family; Emergency Provider Emergency Medicine; PCP Internal Medicine
DX: O86.20 Urinary tract infection following delivery, unspecified (principal); N39.0 Urinary tract infection, site not specified; B96.89 Other specified bacterial agents as the cause of diseases classified elsewhere; Z16.20 Resistance to unspecified antibiotic
CPT/HCPCS: 36415; 80053; 81001; 84703; 85025; 99283; J2185; J7050

== ENCOUNTER → 2025-11-14 | Outpatient (CLI) | payer OTHER, SELFPAY ==
[2025-11-14 09:19] LABS: Collection Type, Urine Clean Catch
[2025-11-14 09:40] LABS: Basophils # (Auto) 0.1 Thou/mm3 (0.0-0.2); Basophils % (Auto) 1 % (0-2.5); Eosinophils # (Auto) 0.1 Thou/mm3 (0.0-0.5); Eosinophils % (Auto) 2 % (0-10); Hematocrit 40.7 % (36.0-46.0); Hemoglobin 13.5 g/dL (12.0-16.0); Immature Granulocytes Auto 0.01 Thou/mm3 (0.00-0.00); Lymphocytes # (Auto) 2.3 Thou/mm3 (1.0-4.8); Lymphocytes % (Auto) 34 % (10-50); Mean Corpuscular HGB Conc 33.2 g/dl (31.0-37.0); Mean Corpuscular Hemoglobin 29.3 pg (25.0-35.0); Mean Corpuscular Volume 89 fL (80-100); Monocytes # (Auto) 0.5 Thou/mm3 (0.0-0.8); Monocytes % (Auto) 8 % (0-12); Neutrophils # (Auto) 3.7 Thou/mm3 (1.8-7.7); Neutrophils % (Auto) 56 % (37-80); Nucleated Red Blood Cell # 0.00 Thou/mm3 (0.00-0.00); Nucleated Red Blood Cell % 0 /100 WBC (0); Platelet Count 265 Thou/mm3 (140-440); RDW Standard Deviation 41.2 fL (36.4-46.3); Red Blood Count 4.60 Miln/mm3 (4.00-5.20); White Blood Count 6.6 Thou/mm3 (3.6-11.0)
[2025-11-14 09:48] LABS: Bilirubin,Urine Negative (Negative); Blood,Urine Negative (Negative); Clarity,Urine Clear (Clear/Hazy); Color,Urine Lt-Yellow (Lt Yel-Yel); Glucose, Urine Negative (Negative); Ketones,Urine Negative (Negative); Leukocyte Esterase,Urine Negative (Negative); Nitrite,Urine Negative (Negative); PH,Urine 6.0 (5.0-7.0); Protein,Urine Negative (Neg - Trace); RBC,Urine 1 /hpf (0-3); Specific Gravity,Urine 1.006 (1.001-1.035); Squamous Epithelial Cell,Urine 2 /hpf (0-5); Urobilinogen,Urine Negative mg/dL (0.0-1.0); WBC,Urine 2 /hpf (0-5)
[2025-11-14 09:54] LABS: Alanine Aminotransferase 34 U/L (10-49); Albumin, Serum 4.1 gm/dL (3.5-5.0); Albumin/Globulin Ratio 1.4 (1.2-2.2); Alkaline Phosphatase 57 U/L (46-116); Anion Gap 8 (7-16); Aspartate Amino Transferase 24 U/L (0-34); BUN/Creatinine Ratio 17 Ratio (12-20); Bilirubin,Total 0.6 mg/dL (0.3-1.2); Blood Urea Nitrogen 10 mg/dL (9-23); Calcium 9.6 mg/dL (8.3-10.6); Calcium (Corrected) 9.6 mg/dL (8.5-10.1); Carbon Dioxide 27.5 mMol/L (20.0-31.0); Chloride 106 mMol/L (98-107); Creatinine (Component) 0.6 mg/dL (0.6-1.3); Globulin 3.0 gm/dL (2.3-3.5); Glucose 96 mg/dL (74-106); Osmolality,Calculated 280 (275-295); Potassium 4.2 mMol/L (3.4-5.1); Sodium 141 mMol/L (136-145); Total Protein 7.1 gm/dL (5.7-8.2); eGFR > 60 See Note
[2025-11-14 10:11] LABS: INR 1.0 (0.9-1.3); Partial Thromboplastin Time 30.6 Seconds (22.0-36.0); Prothrombin Time 10.6 Seconds (9.0-12.2)
== END | disposition home or self-care (01) ==
LOC: COPL 08:43
PROVIDERS: PCP Internal Medicine; Referring Provider Internal Medicine; Visit Provider Internal Medicine
DX: Z00.00 Encounter for general adult medical examination without abnormal findings (principal)
CPT/HCPCS: 36415; 80053; 81001; 85025; 85610; 85730